=== PATIENT | female | born 1995 | race American Indian/Alaskan Native ===

== ENCOUNTER 2017-08-24 00:18 | Inpatient (IN) | payer OTHER ==
[2017-08-24] MEDS ORDERED: MINERAL OIL PO PRN (01:06)
[2017-08-24] MEDS ORDERED: ePHEDrine SULFATE IV PRN ×2 (01:06→04:42)
[2017-08-24] MEDS ORDERED: BRETHINE IVP PRN (01:06)
[2017-08-24] MEDS ORDERED: XYLOCAINE 2% INFILTRATI ONE (01:06)
[2017-08-24] MEDS ORDERED: BRETHINE SUB-Q PRN (01:06)
[2017-08-24] MEDS ORDERED: CERVIDIL VG ONE (01:06)
[2017-08-24] MEDS ORDERED: LACTATED RINGERS 1,000 ML IV SCH (02:00)
[2017-08-24] MEDS ORDERED: PITOCin/NS 20 UNIT/1000ML DRIP 20 UNITS/1,000 ML BAG IV SCH (02:00)
[2017-08-24 02:32] LABS: Hemoglobin 10.5 gm/dl (10.1-14.3); Mean Corpuscular HGB Conc 33 % (30-34); Mean Corpuscular Hemoglobin 29 pg (28-32); Mean Corpuscular Volume 89 fl (79-97); Platelet Count 175 K/mm3 (140-440); Red Blood Count 3.61 M/mm3 (3.65-5.03); Red Cell Distribution Width 15.9 % (13.2-15.2)
[2017-08-24] MEDS ORDERED: TYLENOL PO PRN (03:53)
--- NOTE | 2017-08-24 04:38 | History and Physical Report ---
History of Present Illness Date of examination: 08/24/17 Date of admission: 08/24/17 01:30 Chief complaint: Induction for preeclampsia History of present illness: 22-year-old at 38+ weeks presents for induction due to recently diagnosed preeclampsia, she is a [facility] patient. course complicated by late presentation at 29 weeks. She has had only 4 visits and her blood pressure has been elevated 2 with range 140 to 150s over 70s to 80s; 24 hr urine obtained shows result of 369. She is a headache, but denies epigastric pain or blurred vision. Blood pressure is in the 120s over 70s She does have significant lower extremity edema bilaterally She denies loss of fluid, no vaginal bleeding and contractions plus movement On exam per RN she is 1 cm long and thick. 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 denies: chlamydia, gonorrhea, hepatitis B, hepatitis C, herpes, HIV, syphilis Social history: single, full code. denies: Lives alone, smoking, alcohol abuse , prescription drug abuse, IV drug use - Obstetrical History Expected Date of Delivery: 08/30/17 Actual Gestation: 39 Week(s) 1 Day(s) : 1 Medications and Allergies Allergies Allergy/AdvReac Type Severity Reaction Status Date / Time No Known Allergies Allergy Verified 08/24/17 01:14 Active Meds: Active Medications Acetaminophen (Tylenol) 650 mg PO Q4H PRN PRN Reason: Pain, Mild (1-3) Last Admin: 08/24/17 04:10 Dose: 650 mg Ephedrine Sulfate (Ephedrine Sulfate) 10 mg IV Q2M PRN PRN Reason: Hypotension Lactated Ringer's (Lactated Ringers) 1,000 mls @ 125 mls/hr IV DIRECT KIMBERLY Oxytocin/Sodium Chloride (Pitocin/Ns 20 Unit/1000ml Drip) 20 units in 1,000 mls @ 125 mls/hr IV DIRECT KIMBERLY Mineral Oil (Mineral Oil) 30 ml PO QHS PRN PRN Reason: Constipation Terbutaline Sulfate (Brethine) 0.25 mg SUB-Q ONCE PRN PRN Reason: Hyperstimulation/Hypertonicity Terbutaline Sulfate (Brethine) 0.25 mg IVP ONCE PRN PRN Reason: Hyperstimulation/Hypertonicity Review of Systems Constitutional: no fever, no chills, no weakness, no chronic headaches Eyes: no blurred vision, no diplopia, no photophobia, no blind spots Cardiovascular: leg edema, no chest pain, no orthopnea, no edema, no syncope, no lightheadedness, no shortness of breath, no dyspnea on exertion, no high blood pressure Respiratory: no cough, no cough with sputum, no shortness of breath, no dyspnea on exertion Gastrointestinal: no abdominal pain, no nausea, no vomiting Genitourinary: no vaginal bleeding, no vaginal discharge, no leakage of fluid, no contractions - Vital Signs Vital signs: Vital Signs Temp Resp 97.1 F L 18 08/24/17 00:40 08/24/17 00:40 Temp Pulse Resp BP Pulse Ox 97.7 F 84 18 123/81 94 08/24/17 03:22 08/24/17 04:03 08/24/17 04:10 08/24/17 03:24 08/24/17 04:03 - Physical Exam Abdomen: Positive: normal appearance, soft. Negative: distention, tenderness, guarding, rigidity Genitourinary (Female): Positive: normal external genitalia Vulva: both: normal Uterus: Positive: enlarged (EFW ~ 3600). Negative: tender Adnexa: both: normal Extremities: Positive: edema. Negative: tenderness - Obstetrical FHR: category 1 Cervical Dilatation: 1 (per RN) Results Result Diagrams: 08/24/17 01:45 Abnormal lab results 08/24/17 Range/Units 01:45 RBC 3.61 L (3.65-5.03) M/mm3 RDW 15.9 H (13.2-15.2) % All other labs normal. Assessment and Plan A: 22-year-old at 39+1 weeks with preeclampsia -Cat 1 tracing P: -Admit -Routine labs and CMP -Cervidil Induction -Consider magnesium if blood pressure in severe range persistent -Anticipate - Patient Problems (1) 39 weeks gestation of Current Visit: Yes Status: Acute (2) Pre-eclampsia Current Visit: Yes Status: Acute
[2017-08-24 05:33] LABS: Albumin 3.1 g/dL (3.9-5); BUN/Creatinine Ratio 20; Blood Urea Nitrogen 8 mg/dL (7-17); Calcium 8.3 mg/dL (8.4-10.2); Hemolysis Index 99
[2017-08-24 05:38] LABS: Alanine Aminotransferase 12 units/L (7-56)
[2017-08-24] MEDS: LACTATED RINGERS 1,000 ML IV SCH ×2 (09:54→18:41)
--- NOTE | 2017-08-24 12:09 | Progress Note ---
Assessment and Plan - Patient Problems (1) 39 weeks gestation of Current Visit: Yes Status: Acute (2) Pre-eclampsia Current Visit: Yes Status: Acute Plan to address problem: SBP 120-128, DBP 70-80 Continue routine BP monitoring (3) Encounter for induction of labor Current Visit: Yes Status: Acute Plan to address problem: Cervidil inserted 08/24/17 @ 04:00 Continue routine labor orders Anticipate vaginal delivery Subjective - Subjective Date of service: 08/24/17 Principal diagnosis: IUP @ 39 weeks 1 day; IOL for pre-eclampsia Patient reports: no new complaints (patient resting in bed in left lateral position with eyes closed) Objective - Vital Signs Vital Signs: Vital Signs - 12hr 08/24/17 08/24/17 08/24/17 00:40 00:42 00:59 Temperature 97.1 F L Pulse Rate 90 82 Respiratory 18 Rate Blood Pressure 123/78 128/80 Blood Pressure [Left] O2 Sat by Pulse Oximetry 08/24/17 08/24/17 08/24/17 01:09 01:25 03:22 Temperature 97.7 F Pulse Rate 100 H 91 H Respiratory 18 Rate Blood Pressure 124/75 124/77 Blood Pressure [Left] O2 Sat by Pulse Oximetry 08/24/17 08/24/17 08/24/17 03:24 03:53 03:58 Temperature Pulse Rate 91 H 81 85 Respiratory Rate Blood Pressure 123/81 Blood Pressure [Left] O2 Sat by Pulse 100 100 Oximetry 08/24/17 08/24/17 08/24/17 04:03 04:10 04:37 Temperature Pulse Rate 84 67 Respiratory 18 Rate Blood Pressure 126/76 Blood Pressure [Left] O2 Sat by Pulse 94 Oximetry 08/24/17 08/24/17 08/24/17 05:38 06:36 08:03 Temperature 98.1 F Pulse Rate 65 75 76 Respiratory 16 Rate Blood Pressure 119/59 119/60 Blood Pressure 121/75 [Left] O2 Sat by Pulse Oximetry 08/24/17 08/24/17 08:08 09:36 Temperature Pulse Rate 76 85 Respiratory Rate Blood Pressure 121/75 120/70 Blood Pressure [Left] O2 Sat by Pulse Oximetry - Exam FHR: auscultation normal, category 1 FHR comments: baseline 150, moderate variability, 15x15 accels, no decels Uterine Contraction Monitor Mode: External Uterine Contraction Frequency (min): 2-5 Uterine Contraction Pattern: Regular - Labs Labs: Abnormal Labs 08/24/17 08/24/17 01:45 05:00 RBC 3.61 L RDW 15.9 H Carbon Dioxide 20 L Creatinine 0.4 L Calcium 8.3 L Alkaline Phosphatase 171 H Total Protein 6.0 L Albumin 3.1 L Laboratory Results - last 24 hr 08/24/17 08/24/17 08/24/17 01:45 01:45 05:00 WBC 7.6 RBC 3.61 L Hgb 10.5 Hct 32.0 MCV 89 MCH 29 MCHC 33 RDW 15.9 H Plt Count 175 Sodium 137 Potassium 4.5 Chloride 102.8 Carbon Dioxide 20 L Anion Gap 19 BUN 8 Creatinine 0.4 L Estimated GFR > 60 BUN/Creatinine Ratio 20 Glucose 67 Calcium 8.3 L Total Bilirubin 0.20 AST 24 ALT 12 Alkaline Phosphatase 171 H Total Protein 6.0 L Albumin 3.1 L Albumin/Globulin Ratio 1.1 Blood Type A POSITIVE Antibody Screen Negative
[2017-08-24] MEDS: PITOCin/NS 30 UNIT/500ML 30 UNITS/500 ML BAG IV SCH ×2 (18:42→19:44)
[2017-08-25] MEDS: LACTATED RINGERS 1,000 ML IV SCH ×2 (01:30→17:13)
--- NOTE | 2017-08-25 12:25 | Progress Note ---
Assessment and Plan - Patient Problems (1) 39 weeks gestation of Current Visit: Yes Status: Acute (2) Pre-eclampsia Current Visit: Yes Status: Acute Plan to address problem: SBP 117-136, DBP 64-80 Continue routine BP monitoring (3) Encounter for induction of labor Current Visit: Yes Status: Acute Plan to address problem: Continue routine labor orders Continue cervical ripening with Cook Balloon and restart low dose Pitocin up to 4 mU/min Anticipate vaginal delivery Subjective - Subjective Date of service: 08/25/17 Principal diagnosis: IUP @ 39 weeks 2 day; IOL for pre-eclampsia Interval history: Cervidil inserted 08/24/17 @ 04:00 and removed @ 16:00. Cervix unchanged. Patient was allowed to shower and have dinner. Due to regular contractions q 2 to 5 mins, the patient was started on low dose Pitocin up to 4mU/min to start titrating per protocol when in active labor. After 12 hrs, no cervical change noted. Pitocin discontinued and patient was allowed to shower and eat breakfast. Patient reports: movement normal, contractions, other (denies headache, vision changes, epigastric pain or N/V), no loss of fluid, no vaginal bleeding Objective - Vital Signs Vital Signs: Vital Signs - 12hr 08/25/17 08/25/17 08/25/17 04:27 08:21 08:27 Temperature 98.3 F Pulse Rate 85 74 74 Respiratory 16 Rate Blood Pressure 128/73 136/79 Blood Pressure 136/79 [Left] O2 Sat by Pulse 100 Oximetry - Exam FHR: auscultation normal, category 1 FHR comments: baseline 130, moderate variability, 15X15 accels, no decels Uterine Contraction Monitor Mode: External Cervical Dilatation: 1.5 Cervical Effacement Percentage: 50 station: -3 Uterine Contraction Pattern: Irregular Extremities: edema (3+, non-pitting) - Labs Labs: Abnormal Labs 08/24/17 08/24/17 01:45 05:00 RBC 3.61 L RDW 15.9 H Carbon Dioxide 20 L Creatinine 0.4 L Calcium 8.3 L Alkaline Phosphatase 171 H Total Protein 6.0 L Albumin 3.1 L Laboratory Results - last 24 hr 08/24/17 01:45 RPR Nonreactive
[2017-08-25] MEDS: PITOCin/NS 30 UNIT/500ML 30 UNITS/500 ML BAG IV SCH (17:15)
[2017-08-25] MEDS ORDERED: SUBLIMAZE IV PRN (19:58)
[2017-08-25] MEDS: STADOL IV PRN (20:13)
[2017-08-26] MEDS: LACTATED RINGERS 1,000 ML IV SCH (02:07)
[2017-08-26] MEDS: PITOCin/NS 30 UNIT/500ML 30 UNITS/500 ML BAG IV SCH ×2 (02:08→04:37)
[2017-08-26] MEDS: STADOL IV PRN (03:40)
--- NOTE | 2017-08-26 04:18 | Event Note ---
Date: 08/26/17 S: Patient in right lateral position. She reports mild contractions and tolerable. O: BP 120/74, HR 92 SVE 5/50/-1/vtx FHR: baseline 125, moderate variability, +accels, early and variable decels Ctxs: q1-6mins, palpate moderate Pitocin @ 10 mU/min AROM @ 03:26, clear, moderate amount A: 22yo G 1 P 0 @ 39 weeks 3 days IOL for pre-eclampsia Category II FHR Active labor AROM P: Continue routine labor orders Anticipate vaginal delivery
[2017-08-26] MEDS ORDERED: XYLOCAINE 2% INFILTRATI ONE (06:06)
--- NOTE | 2017-08-26 07:19 | Procedure Note ---
OB Delivery Note - Delivery Date of Delivery: 08/26/17 (05:55) Surgeon: CHRISTIN SIMPSON (CNM) Estimated blood loss: other (400cc) - Vaginal Delivery presentation: vertex Delivery position: OA Intrapartum events: meconium (terminal), prolonged latent phase Delivery induction: cervidil (as well as low dose pitocin, and cook balloon) Delivery augmentation: rupture of membranes, pitocin Delivery monitor: external FHT, external uterine Route of delivery: Delivery placenta: spontaneous (06:01) Delivery cord: 3 umbilical vessels Episiotomy: none Delivery laceration: 1st degree (labial), vaginal side wall Delivery repair: vicryl (2-0 and 3-0 ) Anesthesia: local Delivery comments: of a less vigorous term 7 lbs 6.5 oz female at 05:55. Baby placed on maternal abdomen, dried and bulb-suctioned. Umbilical cord double-clamped and cut. Large lochia noted. Spontaneous delivery of placenta @ 06:01; Valeri-side presenting. Fundal massage initiated. IV site infiltrated and new IV line started by RN. IV pitocin bolus initiated. Fundus F/ML/U. Placenta intact; was discarded. 1st degree vaginal and labial laceration noted; repaired using 2-0 and 3-0 vicryl needles under local anesthesia. Patient tolerated the procedure well with some discomfort. Mom and baby in stable condition. - Infant A at 1 minute: 7 at 5 minutes: 8 Infant Gender: Female (7 lbs 6.5oz (3367gm); 20 in)
[2017-08-26] MEDS ORDERED: PHENERGAN PO PRN (07:21)
[2017-08-26] MEDS ORDERED: LANSINOH TP PRN (07:21)
[2017-08-26] MEDS ORDERED: ZOFRAN IV PRN (07:21)
[2017-08-26] MEDS ORDERED: PHENERGAN PR PRN (07:21)
[2017-08-26] MEDS ORDERED: NORCO 5/325 PO PRN (07:21)
[2017-08-26] MEDS ORDERED: TUCKS PAD TP PRN (07:21)
[2017-08-26] MEDS ORDERED: BENADRYL PO PRN (07:21)
[2017-08-26] MEDS ORDERED: SODIUM CHLORIDE FLUSH SYRINGE 10 ML IV NR (08:00)
[2017-08-26] MEDS: MOTRIN PO SCH ×4 (08:00→23:43)
[2017-08-26] MEDS ORDERED: DULCOLAX PR PRN (10:00)
[2017-08-26] MEDS ORDERED: PRENATAL VITAMIN PO SCH (10:00)
[2017-08-26] MEDS ORDERED: FEOSOL PO SCH (10:00)
[2017-08-26 20:06] LABS: Hematocrit 25.2 % (30.3-42.9)
[2017-08-26] MEDS ORDERED: MILK OF MAGNESIA PO PRN (22:00)
[2017-08-27] MEDS: MOTRIN PO SCH (05:08)
--- NOTE | 2017-08-27 09:22 | Progress Note ---
Assessment and Plan - Patient Problems (1) (normal spontaneous vaginal delivery) Current Visit: Yes Status: Acute Plan to address problem: PPD 2 - stable Discharge to home F/U @ [facility] in 6 weeks for PP exam (2) Anemia in puerperium, baby delivered during current episode of care Current Visit: Yes Status: Acute Plan to address problem: Asymptomatic Continue iron therapy Subjective - Subjective Date of service: 08/27/17 Principal diagnosis: s/p Normal Spontaenous Vaginal Delivery Patient reports: appetite normal, voiding normally, pain well controlled, ambulating normally [place]: doing well, bottle feeding Objective - Vital Signs Latest vital signs: Vital Signs Temp Pulse Resp BP Pulse Ox 08/27/17 08:00 97.9 F 73 16 126/77 97 08/27/17 00:19 98.2 F 92 H 18 130/77 98 08/26/17 20:20 98.5 F 108 H 18 120/78 100 08/26/17 16:04 98.9 F 98 H 16 129/79 99 08/26/17 12:43 98.2 F 85 16 127/73 100 Intake and Output 08/26/17 08/27/17 08/27/17 23:59 07:59 15:59 Intake Total 920 720 Balance 920 720 Intake: Oral 440 720 Intake, Free Water 480 Other: Total, Intake Amount 200 480 # Voids Void 1 2 # Bowel Movements 0 - Exam Cardiovascular: Present: Regular rate, Normal S1, Normal S2, No murmurs Lungs: Present: Clear to auscultation, Normal air movement Abdomen: Present: normal appearance, soft Vulva: both: laceration/episiotomy (healing well) Uterus: Present: normal, firm, fundal height below umbilicus Extremities: Present: edema (3+) Deep Tendon Reflex Grade: Normal +2 - Labs Labs: Abnormal lab results 08/26/17 Range/Units 19:27 Hgb 8.0 L (10.1-14.3) gm/dl Hct 25.2 L D (30.3-42.9) %
--- NOTE | 2017-08-27 09:27 | Discharge Summary ---
Providers - Providers Date of Admission: 08/24/17 01:30 Date of discharge: 08/27/17 Attending physician: ALAN WINCHESTER MD Primary care physician: ALAN WINCHESTER MD Hospitalization Reason for admission: induction of labor, IUP at term, other (pre-eclampsia) Delivery: Episiotomy: none Laceration: vaginal side wall, 1st degree (labial/vaginal) Other procedures: none complications: none Discharge diagnosis: IUP at term delivered baby: female Hospital course: Uncomplicated Condition at discharge: Stable Disposition: DC-01 TO HOME OR SELFCARE - Discharge Diagnoses (1) (normal spontaneous vaginal delivery) Status: Acute (2) Anemia in puerperium, baby delivered during current episode of care Status: Acute Comment: asymptomatic Plan - Discharge Medications Prescriptions: Ferrous Sulfate [Feosol 325 MG tab] 325 mg PO BID #60 tablet - Provider Discharge Summary Activity: routine, no sex for 6 weeks, no heavy lifting 4 weeks, no strenuous exercise Diet: routine Instructions: routine Additional instructions: [] Smoking cessation referral if applicable(refer to patient education folder for contact #) [] Refer to [facility] Booklet Call your doctor immediately for: * Fever > 100.5 * Heavy vaginal bleeding ( >1 pad per hour) * Severe persistent headache * Shortness of breath * Reddened, hot, painful area to leg or breast * Drainage or odor from incision. * Keep incision clean and dry at all times and follow doctor's instructions regarding bathing/showering - Follow up plan Follow up: ALAN WINCHESTER MD [Primary Care Provider] - 6 Weeks (Call [facility] to schedule checkup and PP exam in 6 weeks)
[2017-08-27 12:27] VITALS: BP 125/77
== END 2017-08-27 13:30 | disposition home or self-care (01) | DRG 774 ==
LOC: TRG 00:18 → LD 01:30 → OB 08-26 09:47
PROVIDERS: ADMIT Obstetrics & Gynecology; ATTEND Obstetrics & Gynecology
PROC: 10E0XZZ Delivery of Products of Conception, External Approach (ICD-10-PCS; principal; 2017-08-26)
PROC: 0HQ9XZZ Repair Perineum Skin, External Approach (ICD-10-PCS; 2017-08-26)
PROC: 3E033VJ Introduction of Other Hormone into Peripheral Vein, Percutaneous Approach (ICD-10-PCS; 2017-08-26)
DX: O14.93 Unspecified pre-eclampsia, third trimester (principal); Z3A.39 39 weeks gestation of pregnancy; Z37.0 Single live birth; O70.0 First degree perineal laceration during delivery; O77.0 Labor and delivery complicated by meconium in amniotic fluid; O62.4 Hypertonic, incoordinate, and prolonged uterine contractions; O90.81 Anemia of the puerperium; D64.9 Anemia, unspecified
CPT/HCPCS: 36415; 59200; 80053; 85014; 85018; 85027; 86592; 86850; 86900; 86901; J0595; J2590; J7120

== ENCOUNTER 2019-01-24 17:47 | Inpatient (IN) | payer OTHER ==
[2019-01-24] MEDS ORDERED: PITOCin/NS 20 UNIT/1000ML DRIP 20,000 MILLIUNITS/1,000 ML BAG IV ONE (18:08)
[2019-01-24] MEDS ORDERED: BRETHINE SUB-Q PRN (18:20)
[2019-01-24] MEDS ORDERED: XYLOCAINE 2% INFILTRATI ONE (18:20)
[2019-01-24] MEDS ORDERED: PHENERGAN PR PRN (18:25)
[2019-01-24] MEDS ORDERED: TUCKS PAD TP PRN (18:25)
[2019-01-24] MEDS ORDERED: ZOFRAN IV PRN (18:25)
[2019-01-24] MEDS ORDERED: PHENERGAN PO PRN (18:25)
[2019-01-24] MEDS ORDERED: TYLENOL PO PRN (18:25)
[2019-01-24] MEDS ORDERED: DULCOLAX PR PRN (18:25)
[2019-01-24] MEDS ORDERED: BENADRYL PO PRN (18:25)
[2019-01-24] MEDS ORDERED: MILK OF MAGNESIA PO PRN (18:25)
[2019-01-24] MEDS ORDERED: LANSINOH TP PRN (18:25)
--- NOTE | 2019-01-24 18:37 | History and Physical Report ---
History of Present Illness Date of examination: 01/24/19 Date of admission: 01/24/19 17:47 Chief complaint: Delivered in the car. History of present illness: 23 year old female presents to L&D with complaint of having her baby in the car while trying to come to the hospital. She states the placenta has not yet delivered. Patient states she had one visit at [facility] during this . I was able to access notes and labs on computer. LMP 04/30/18. EDC 02/04/19. significant for the following: late care (initiated care on 01/12/19 and only had that one visit at 36 5/7 weeks gestation); anemia, vitamin D deficiency, UTI (untreated as patient never returned), chlamydia (untreated as patient never returned), trichomonas (untreated as patient never returned), elevated 1 hour sugar test (no 3 hour sugar test was done as patient never returned for this). labs are as follows: A+, antibody screen negative, rubella immune, hepatitis B surface antigen negative, RPR nonreactive, HIV negative, hemoglobin electrophoresis negative, 1 hour sugar test 146, hemoglobin A1C 5.6, chlamydia positive, gonorrhea negative, trichomonas positive, urine culture showed E Coli, GBS negative. Past History Past Medical History: no pertinent history Past Surgical History: no surgical history [facility] History: chlamydia, trichomonas. denies: gonorrhea, hepatitis B, hepatitis C, herpes, HIV, syphilis Family/Genetic History: none Social history: lives with family, full code. denies: smoking, alcohol abuse, prescription drug abuse, IV drug use - Obstetrical History Expected Date of Delivery: 02/04/19 Actual Gestation: 38 Week(s) 3 Day(s) : 2 Para: 2 Hx # Term Pregnancies: 2 Number of Pregnancies: 0 Spontaneous Abortions: 0 Induced : 0 Number of Living Children: 2 Medications and Allergies Allergies Allergy/AdvReac Type Severity Reaction Status Date / Time No Known Allergies Allergy Verified 08/24/17 01:14 Home Medications Medication Instructions Recorded Confirmed Last Taken Type Ferrous Sulfate [Iron] 325 mg PO BID 08/24/17 08/24/17 Unknown History Vit-Fe Fumar-FA [ 1 tab PO QDAY 08/24/17 08/24/17 Unknown History Vitamin] Ferrous Sulfate [Feosol 325 MG tab] 325 mg PO BID #60 tablet 08/27/17 Unknown Rx Active Meds: Active Medications Acetaminophen (Tylenol) 650 mg PO Q4H PRN PRN Reason: Pain MILD(1-3)/Fever >100.5/MARIANO Azithromycin (Zithromax) 1,000 mg PO ONCE ONE Stop: 01/25/19 20:01 Oxytocin/Sodium Chloride (Pitocin/Ns 20 Unit/1000ml Drip) 20 units in 1,000 mls @ 125 mls/hr IV DIRECT KIMBERLY Last Admin: 01/24/19 18:29 Dose: 125 mls/hr Documented by: Lactated Ringer's (Lactated Ringers) 1,000 mls @ 125 mls/hr IV DIRECT KIMBERLY Ampicillin Sodium (Ampicillin/Ns 2 Gm/100 Ml) 2 gm in 100 mls @ 100 mls/hr IV Q6HR KIMBERLY; Protocol Ibuprofen (Ibuprofen) 600 mg PO Q6H KIMBERLY Magnesium Hydroxide (Milk Of Magnesia) 30 ml PO HS PRN PRN Reason: Constipation Metronidazole (Flagyl) 2,000 mg PO ONCE ONE; Protocol Stop: 01/24/19 19:01 Multi-Ingredient Ointment (Lansinoh) 1 applic TP PRN PRN PRN Reason: Sore Nipples Sodium Chloride (Sodium Chloride Flush Syringe 10 Ml) 10 ml IV PRN NR Terbutaline Sulfate (Brethine) 0.25 mg SUB-Q ONCE PRN PRN Reason: Hyperstimulation/Hypertonicity Witch Sarah/Glycerin (Tucks Pad) 1 each TP PRN PRN PRN Reason: Hemorrhoid/cleansing/soothing Review of Systems All systems: negative (had her baby in the car en route to the hospital) - Vital Signs Vital signs: Vital Signs Temp 97.3 F L 01/24/19 17:54 Temp Pulse Resp BP Pulse Ox 97.3 F L 96 H 121/69 01/24/19 17:54 01/24/19 18:21 01/24/19 18:21 - Physical Exam Cardiovascular: Regular rate, Normal S1, Normal S2 Lungs: Positive: Clear to auscultation Abdomen: Positive: normal appearance, soft. Negative: distention, tenderness, guarding, rigidity Genitourinary (Female): Positive: normal external genitalia Vagina: Positive: other (small amount of lochia rubra; placenta noted to be in vagina on vaginal exam) Uterus: Positive: enlarged, tender Anus/Rectum: Positive: normal perianal skin Extremities: Positive: normal, edema. Negative: tenderness - Obstetrical Uterine Contraction Intensity: Mild Results All other labs normal. Assessment and Plan A: Delivered at 38 weeks, 3 days gestation. Precipitous delivery in the car on her way to the hospital. GBS negative. Chlamydia positive. Trichomonas positive. E. Coli UTI per records. Late and insufficient care. Elevated 1 hour sugar test with no 3 hour OGTT and normal hemoglobin A1C. Anemia. Meconium noted on placenta and membranes and large blood clot on placenta. P: Admit. Treatment of UTI, trichomonas, and chlamydia. Iron supplementation.
[2019-01-24] MEDS ORDERED: FLAGYL PO ONE (19:00)
[2019-01-24] MEDS ORDERED: PITOCin/NS 20 UNIT/1000ML DRIP 20 UNITS/1,000 ML BAG IV SCH (19:00)
[2019-01-24] MEDS ORDERED: SODIUM CHLORIDE FLUSH SYRINGE 10 ML IV NR (19:00)
--- NOTE | 2019-01-24 19:06 | Procedure Note ---
OB Delivery Note - Delivery Date of Delivery: 01/24/19 Surgeon: ARGELIA CHAUDHRY Estimated blood loss: 100cc - Vaginal Delivery presentation: vertex Intrapartum events: meconium, other(please specify) (precipitous delivery of baby in the car prior to patient arriving at hospital; placenta delivered in hospital) Delivery induction: none Delivery monitor: none Route of delivery: Delivery placenta: spontaneous Delivery cord: 3 umbilical vessels Episiotomy: none Delivery laceration: none Anesthesia: none Delivery comments: Spontaneous precipitous delivery in the car of liveborn female infant at 16:59 per paramedics. Apgars 7/9 per paramedics. Patient arrives in L&D with placenta undelivered. Spontaneous delivery of intact placenta and membranes at 17:49 by [place] mechanism. Large blood clot noted on placenta. Meconium noted on membranes. Slight smell of placenta noted. Placenta sent to path. IV Pitocin given after delivery of placenta. EBL 100 cc. Vaginal sweep negative. Fundus firm and midline. No lacerations noted. NICU called to assess infant, and NICU was informed of precipitous in car delivery, meconium noted on membranes, blood clot noted on placenta, odor, + chlamydia and + trichomonas on labs as well at UTI (E. Coli). Also informed NICU that patient had late and insufficient care and did not pass her 1 hour sugar test. Baby was taken to NICU for observation.
[2019-01-24] MEDS: AMPICILLIN/NS 2 GM/100 ML 2 GM/100 ML BAG IV SCH (20:37)
[2019-01-24] MEDS: IBUPROFEN PO SCH (20:39)
[2019-01-24] MEDS: FEOSOL PO SCH (21:40)
[2019-01-24 22:01] LABS: Hematocrit 25.4 % (30.3-42.9); Hemoglobin 8.3 gm/dl (10.1-14.3); Mean Corpuscular HGB Conc 33 % (30-34); Mean Corpuscular Volume 80 fl (79-97); Platelet Count 257 K/mm3 (140-440); Red Blood Count 3.17 M/mm3 (3.65-5.03); Red Cell Distribution Width 16.7 % (13.2-15.2)
[2019-01-24 22:15] LABS: Alanine Aminotransferase 10 units/L (7-56); Albumin 2.1 g/dL (3.9-5); BUN/Creatinine Ratio 14; Blood Urea Nitrogen 11 mg/dL (7-17); Hemolysis Index 0; Uric Acid 6.6 mg/dL (3.5-7.6)
[2019-01-25] MEDS: AMPICILLIN/NS 2 GM/100 ML 2 GM/100 ML BAG IV SCH ×2 (01:18→11:04)
[2019-01-25] MEDS: IBUPROFEN PO SCH ×2 (03:42→20:36)
[2019-01-25] MEDS: LACTATED RINGERS 1,000 ML IV SCH ×2 (06:45→14:32)
[2019-01-25 07:10] LABS: Hematocrit 29.7 % (30.3-42.9); Hemoglobin 9.5 gm/dl (10.1-14.3)
[2019-01-25] MEDS ORDERED: GENTAMICIN 100 MG in NACL 0.9% 100 ML IV SCH (09:44)
--- NOTE | 2019-01-25 09:48 | Event Note ---
Date: 01/25/19 Per RN, patient did not receive antibiotics as ordered overnight. Labs resulted in the middle of the night and I was not called by patient's nurse or lab with the abnormal results. Saw patient this morning and she has abnormal WBC (elevated) and abnormal potassium. Other labs have not been done as ordered last evening, including urinalysis and urine drug screen. Nurse states she was unable to get an accurate temperature reading on patient this morning but she states vital signs have been normal overnight and patient has been afebrile. Patient reports mild dizziness but denies cough, shortness of breath, chest pain, or abdominal pain. She denies heavy vaginal bleeding. Morning nurse states that patient did cough overnight and had yellow sputum. Stat blood cultures and urine culture ordered; CXR ordered. Added Gentamicin and Potassium to medication orders. Informed nurse of all of the above. Called Dr. Galicia to come evaluate patient due to abnormal labs and inability to get an accurate temperature reading this morning as well as dizziness reported by the patient. Dr. Galicia came and evaluated patient also. See orders.
--- NOTE | 2019-01-25 10:15 | Progress Note ---
Subjective - Subjective Date of service: 01/25/19 Interval history: Per RN, patient did not receive antibiotics as ordered overnight. Labs resulted in the middle of the night and I was not called by patient's nurse or lab with the abnormal results. Saw patient this morning and she has abnormal WBC (elevated) and abnormal potassium. Other labs have not been done as ordered last evening, including urinalysis and urine drug screen. Nurse states she was unable to get an accurate temperature reading on patient this morning but she states vital signs have been normal overnight and patient has been afebrile. Patient reports mild dizziness but denies cough, shortness of breath, chest pain, or a bdominal pain. She denies heavy vaginal bleeding. Morning nurse states that patient did cough overnight and had yellow sputum. Stat blood cultures and urine culture ordered; CXR ordered. Added Gentamicin and Potassium to medication orders. Informed nurse of all of the above. Called Dr. Galicia to come evaluate patient due to abnormal labs and inability to get an accurate temperature reading this morning as well as dizziness reported by the patient. Dr. Galicia came and evaluated patient also. See orders. Objective - Vital Signs Latest vital signs: Vital Signs Temp Pulse Resp BP BP 01/25/19 08:00 60 18 106/73 01/25/19 04:00 98.8 F 71 16 112/62 01/25/19 00:00 98.7 F 77 18 111/78 01/24/19 21:39 18 01/24/19 20:39 18 01/24/19 19:21 99 H 115/65 01/24/19 19:06 96 H 125/72 01/24/19 18:51 96 H 119/70 01/24/19 18:36 96 H 120/67 01/24/19 18:21 96 H 121/69 01/24/19 18:06 96 H 119/69 01/24/19 17:54 97.3 F L Intake and Output 01/24/19 01/25/19 01/25/19 23:59 07:59 15:59 Intake Total 340 480 Output Total 600 Balance -260 480 Intake: IV 100 AMPICILLIN/NS 2 GM/100 ML 100 2 gm In 100 ml @ 100 mls /hr IV Q6H [facility] Rx#: [id number] Oral 240 480 Output: Urine 600 Void 600 Other: Total, Intake Amount 240 480 Total, Output Amount 600 Weight 88.451 kg - Labs Labs: Abnormal lab results 01/24/19 01/24/19 01/24/19 Range/Units 03:09 21:42 21:42 WBC 32.3 H (4.5-11.0) K/mm3 RBC 3.17 L (3.65-5.03) M/mm3 Hgb 8.3 L (10.1-14.3) gm/dl Hct 25.4 L (30.3-42.9) % MCH 26 L (28-32) pg RDW 16.7 H (13.2-15.2) % Fibrinogen 706 H (211-480) mg/dl Sodium 131 L (137-145) mmol/L Potassium 3.0 L (3.6-5.0) mmol/L Carbon Dioxide 20 L (22-30) mmol/L Glucose 158 H (65-100) mg/dL Calcium 8.0 L (8.4-10.2) mg/dL Alkaline Phosphatase 133 H (35-129) units/L Lactate Dehydrogenase 195 H (91-180) units/L Total Protein 6.2 L (6.3-8.2) g/dL Albumin 2.1 L (3.9-5) g/dL 01/25/19 Range/Units 06:46 WBC (4.5-11.0) K/mm3 RBC (3.65-5.03) M/mm3 Hgb 9.5 L (10.1-14.3) gm/dl Hct 29.7 L (30.3-42.9) % MCH (28-32) pg RDW (13.2-15.2) % Fibrinogen (211-480) mg/dl Sodium (137-145) mmol/L Potassium (3.6-5.0) mmol/L Carbon Dioxide (22-30) mmol/L Glucose (65-100) mg/dL Calcium (8.4-10.2) mg/dL Alkaline Phosphatase (35-129) units/L Lactate Dehydrogenase (91-180) units/L Total Protein (6.3-8.2) g/dL Albumin (3.9-5) g/dL
[2019-01-25] MEDS ORDERED: KCL 10MEQ/100ML 10 MEQ/100 ML BAG IV ONE (11:00)
--- NOTE | 2019-01-25 11:25 | Event Note ---
Date: 01/25/19 Zithromax re-ordered as computer glitch when ordering for stat/now has been detected (puts it in for next day when ordering it stat). EKG and CXR have been ordered. Awaiting UDS results; contacted lab about this. Lab states specimen has to be re-done. Cath urine done and sent to lab stat. Called Dr. Galicia re: patient and OK'd a hospitalist consult with Dr. Galicia. Hospitalist consult ordered stat. Called hospitalist and left message on voicemail that consult is being ordered.
[2019-01-25] MEDS: GENTAMICIN/NS 100 MG/100 ML 100 MG/100 ML BAG IV SCH ×2 (11:48→21:54)
[2019-01-25 11:56] LABS: Bacteria,Urine 1+ /HPF (Negative); Bilirubin,Urine NEG (Negative); Blood,Urine SM (Negative); Color,Urine Amber (Yellow); Urobilinogen,Urine < 2.0 mg/dL (<2.0)
[2019-01-25 11:59] LABS: Amphetamine Screen,Urine PRESUMPTIVE NEGATIVE; Benzodiazepines Screen,Urine PRESUMPTIVE NEGATIVE; Cannabinoid Screen,Urine PRESUMPTIVE NEGATIVE; Cocaine Screen,Urine PRESUMPTIVE NEGATIVE; Methadone Screen,Urine PRESUMPTIVE NEGATIVE; Opiate Screen,Urine PRESUMPTIVE NEGATIVE
[2019-01-25 12:00] LABS: WBC,Urine > 182.0 /HPF (0.0-6.0)
--- NOTE | 2019-01-25 12:16 | XRay Report ---
CHEST 1 VIEW 01/25/2019 11:50 AM INDICATION / CLINICAL INFORMATION: cough. COMPARISON: None available. FINDINGS: SUPPORT DEVICES: None. HEART / MEDIASTINUM: No significant abnormality. LUNGS / PLEURA: No significant pulmonary or pleural abnormality. No pneumothorax. ADDITIONAL FINDINGS: No significant additional findings. IMPRESSION: 1. No acute findings. Signer Name: Kolton Gonzalez MD Signed: 01/25/2019 12:11 PM Workstation Name: [id number]
[2019-01-25] MEDS ORDERED: ZITHROMAX PO ONE ×2 (12:26→20:00)
--- NOTE | 2019-01-25 13:11 | Event Note ---
Date: 01/25/19 Cath urinalysis shows greater than 182 WBC/hpf. Negative nitrites. Urine culture pending. Discontinued Ampicillin and started Rocephin 1 gram IV every 12 hours. Continued Gentamicin 100 mg IV every 8 hours. CXR shows "no acute findings." EKG normal sinus rhythm "ST elevation probable early repolarization." Patient states she is less sleepy and less dizzy than she was when seen earlier this morning. Patient denies headache, visual disturbance, chest pain, shortness of breath, leg pain, abdominal pain, back pain or flank pain. Patient denies h eavy vaginal bleeding or large clots. Patient states she takes no home medications, including OTC medications. She denies any use of tobacco, drugs, or alcohol. She denies any history of health problems. She states her antibiotic for UTI diagnosed at the clinic was at her pharmacy but she never picked it up or took it. Trichomonas has been treated with Flagyl and chlamydia has been treated with Zithromax. Patient is alert and oriented, NAD, talks clearly and answers questions appropriately. Skin warm and dry. Respirations even and unlabored. Temp. 92.1 orally. O2 sat 100 % on room air. Pulse 72 bpm. Respirations 20. BP 93/52. BP rechecked manually 92/60. Lungs clear to ausculation in all lung deleon; no wheezing heard, no cough heard. Heart RRR without murmur. Abdomen soft, nontender, + BS, no fundal tenderness. Mild right CVAT. No leg pain bilaterally. Small amount of lochia, no foul odor noted. Probable pyelonephritis. Probable sepsis. Vital sign abnormalities (low temp and low BP). Plan is IV fluid hydration, IV antibiotics (Rocephin and Gentamicin), vital sign monitoring, hospitalist to see patient. Blood cultures, urine culture and flu swab pending. Called Dr. Galicia re: this patient and informed him of urinalysis results, CXR and EKG findings, low temp and low blood pressure as well as lab results and interventions taken. No new orders received from Dr. Galicia. Dr. Galicia states OK for patient to stay on Mother/Baby unit.
[2019-01-25] MEDS ORDERED: LACTATED RINGERS 1,000 ML IV ONE (14:00)
[2019-01-25] MEDS ORDERED: NACL 0.9% 1000 ML 1,000 ML ONE (15:12)
[2019-01-25 15:14] LABS: Hematocrit 34.8 % (30.3-42.9); Hemoglobin 10.9 gm/dl (10.1-14.3); Mean Corpuscular HGB Conc 31 % (30-34); Mean Corpuscular Volume 82 fl (79-97); Platelet Count 311 K/mm3 (140-440); Red Blood Count 4.26 M/mm3 (3.65-5.03); Red Cell Distribution Width 17.3 % (13.2-15.2)
[2019-01-25] MEDS ORDERED: VITAMIN B-1 100 MG, FOLVITE 1 MG, INFUVITE 10 ML in NACL 0.9% 1000 ML 1,000 ML IV ONE (16:16)
--- NOTE | 2019-01-25 18:06 | Cat Scan Report ---
CT abdomen pelvis w con INDICATION / CLINICAL INFORMATION: chills, hypothermia. TECHNIQUE: All CT scans at this location are performed using CT dose reduction for ALARA by means of automated e xposure control. COMPARISON: None available. FINDINGS: No free fluid is seen in the abdomen. Mild bilateral hydronephrosis is present most likely secondary to . The uterus is markedly enlarged consistent with a uterus. The liver, spleen, pancreas, adrenal glands and great vessels are normal. In the pelvis, no significant free fluid is seen. Multiple collateral veins are seen adjacent to the uterus. No enlarged lymph nodes are identified. The bladder is moderately distended. The appendix is normal. IMPRESSION: 1. uterus with multiple collateral veins adjacent to the uterus particular on the right si de 2. Moderate bladder distention with mild bilateral hydronephrosis most likely secondary to Signer Name: Jose PENN Signed: 01/25/2019 6:02 PM Workstation Name: [id number]
[2019-01-25 18:10] LABS: Band Neutrophils # (Manual) 4.1 K/mm3; Basophils % (Manual) 0 % (0.0-1.8); Monocytes % (Manual) 4.5 % (0.0-7.3); Myelocytes # (Manual) 0.3 K/mm3; Total Cells Counted 200
[2019-01-25 18:11] LABS: Anisocytosis 1+; Burr Cells Few; Hypochromasia Few; Large Platelets Few; Ovalocytes Few; Platelet Estimate Consistent w Auto
[2019-01-25] MEDS ORDERED: NACL 0.9% 1000 ML 1,000 ML IV ONE (19:37)
--- NOTE | 2019-01-25 19:47 | Consultation ---
History of Present Illness - Reason for Consult Consult date: 01/25/19 Requesting physician: YEFRI GALICIA - History of Present Illness 23 YO Female with Obesity S/P on 01/24. Consult placed for suspected Sepsis/Pyelonephritis. Pt seen and evaluated upon arrival to [facility]. Pt resting comfortably, and mildly confused, agitated, and tachycardic with heart rate around 120 and systolic blood pressure in the 90's. Pt is also hypothermic. Pt care plan discussed with Dr. Galicia. At time of my initial consultation the following investigational studies have been ordered without results/or f/u: CBC, CMP, Chest X ray, blood cultures, Urine Drug screen, thyroid panel, HIV1&2. Pt currently on therapeutic antibiotics at time of my evaluation. No additional nursing reports. Past History Past Medical History: other (Obesity) Past Surgical History: No surgical history, Other (reviewed) Social history: single, lives with family, full code. denies: smoking, alcohol abuse, prescription drug abuse, IV drug use Family history: no significant family history (reviewed) Medications and Allergies Allergies Allergy/AdvReac Type Severity Reaction Status Date / Time No Known Allergies Allergy Verified 08/24/17 01:14 Home Medications Medication Instructions Recorded Confirmed Last Taken Type Ferrous Sulfate [Iron] 325 mg PO BID 08/24/17 01/24/19 Unknown History Vit-Fe Fumar-FA [ 1 tab PO QDAY 08/24/17 01/24/19 Unknown History Vitamin] Ferrous Sulfate [Feosol 325 MG tab] 325 mg PO BID #60 tablet 08/27/17 01/24/19 Unknown Rx Active Meds: Active Medications Acetaminophen (Tylenol) 650 mg PO Q4H PRN PRN Reason: Pain MILD(1-3)/Fever >100.5/MARIANO Ferrous Sulfate (Feosol) 325 mg PO BID [facility] Last Admin: 01/24/19 21:40 Dose: 325 mg Documented by: Oxytocin/Sodium Chloride (Pitocin/Ns 20 Unit/1000ml Drip) 20 units in 1,000 mls @ 125 mls/hr IV DIRECT [facility] Last Admin: 01/24/19 18:29 Dose: 125 mls/hr Documented by: Lactated Ringer's (Lactated Ringers) 1,000 mls @ 125 mls/hr IV DIRECT [facility] Last Admin: 01/25/19 14:32 Dose: 125 mls/hr Documented by: Gentamicin Sulfate/Sodium Chloride (Gentamicin/Ns 100 Mg/100 Ml) 100 mg in 100 mls @ 200 mls/hr IV Q8H [facility] Last Admin: 01/25/19 11:48 Dose: 200 mls/hr Documented by: Ceftriaxone Sodium (Rocephin/Ns 1 Gm/50 Ml) 1 gm in 50 mls @ 100 mls/hr IV Q12H [facility]; Protocol Thiamine HCl 100 mg/ Folic Acid 1 mg/ Multivitamins/Minerals 10 ml/ Sodium Chloride 1,011.2 mls @ 250 mls/hr IV ONCE ONE Stop: 01/25/19 20:18 Last Admin: 01/25/19 16:48 Dose: 250 mls/hr Documented by: Sodium Chloride (Nacl 0.9% 1000 Ml) 1,000 mls @ 999 mls/hr IV BOLUS ONE Stop: 01/25/19 20:37 Last Admin: 01/25/19 15:15 Dose: 999 mls/hr Documented by: Ibuprofen (Ibuprofen) 600 mg PO Q6H [facility] Last Admin: 01/25/19 03:42 Dose: Not Given Documented by: Magnesium Hydroxide (Milk Of Magnesia) 30 ml PO HS PRN PRN Reason: Constipation Multi-Ingredient Ointment (Lansinoh) 1 applic TP PRN PRN PRN Reason: Sore Nipples Terbutaline Sulfate (Brethine) 0.25 mg SUB-Q ONCE PRN PRN Reason: Hyperstimulation/Hypertonicity Witch Sarah/Glycerin (Tucks Pad) 1 each TP PRN PRN PRN Reason: Hemorrhoid/cleansing/soothing Review of Systems Constitutional: chills, no weight loss, no weight gain, no fever Ears, nose, mouth and throat: no ear pain, no ear discharge, no tinnitis, no nasal congestion Cardiovascular: no chest pain, no orthopnea, no palpitations, no rapid/irregular heart beat, no edema, no syncope, no lightheadedness Respiratory: no cough, no cough with sputum, no excessive sputum, no hemoptysis, no shortness of breath, no dyspnea on exertion Gastrointestinal: no abdominal pain, no nausea, no vomiting, no diarrhea, no constipation, no change in bowel habits, no BRBPR, no melena, no early satiety, no indigestion Genitourinary Female: no pelvic pain, no flank pain, no dysuria, no urinary f requency Rectal: no pain, no incontinence, no bleeding, no itching, no discharge Musculoskeletal: no neck stiffness, no neck pain, no shooting arm pain, no arm numbness/tingling, no shooting leg pain, no redness of joints Integumentary: no rash, no pruritis, no redness, no sores, no wounds, no jaundice Neurological: no transient paralysis, no paralysis, no weakness, no parathesias, no numbness, no tingling, no syncope Psychiatric: no anxiety, no memory loss, no change in sleep habits, no sleep disturbances, no insomnia, no change in appetite, no change in libido Endocrine: no cold intolerance, no heat intolerance, no polyphagia, no excessive thirst, no polydipsia, no polyuria, no nocturia, no excessive sweating Hematologic/Lymphatic: no easy bruising, no easy bleeding, no lymphadenopathy, no lymphedema Allergic/Immunologic: no urticaria, no allergic rhinitis, no wheezing, no persistent infections, no anaphylaxis Exam - Constitutional Vitals: Temp Pulse Resp BP Pulse Ox 97.1 F L 162 H 36 H 125/50 100 01/25/19 15:58 01/25/19 15:58 01/25/19 15:58 01/25/19 15:58 01/25/19 15:58 General appearance: Present: mild distress, obese - EENT Eyes: Present: PERRL ENT: hearing intact, clear oral mucosa - Neck Neck: Present: supple, normal ROM - Respiratory Respiratory effort: normal Respiratory: bilateral: CTA - Cardiovascular Heart Sounds: Present: S1 & S2. Absent: rub, click - Extremities Extremities: pulses symmetrical, No edema Peripheral Pulses: within normal limits - Abdominal General gastrointestinal: Present: soft, non-tender, non-distended, normal bowel sounds Female genitourinary: Present: normal - Integumentary Integumentary: Present: clear, warm, dry - Musculoskeletal Musculoskeletal: generalized weakness - Psychiatric Psychiatric: appropriate mood/affect, intact judgment & insight, no memory intact, agitated - Neurologic Neurologic: CNII-XII intact, moves all extremities, no gait normal Results - Labs CBC & Chem 7: 01/25/19 14:49 01/24/19 21:42 Labs: Abnormal lab results 01/24/19 01/24/19 01/24/19 Range/Units 03:09 21:42 21:42 WBC 32.3 H (4.5-11.0) K/mm3 RBC 3.17 L (3.65-5.03) M/mm3 Hgb 8.3 L (10.1-14.3) gm/dl Hct 25.4 L (30.3-42.9) % MCH 26 L (28-32) pg RDW 16.7 H (13.2-15.2) % Seg Neuts % (Manual) (40.0-70.0) % Lymphocytes % (Manual) (13.4-35.0) % Seg Neutrophils # Man (1.8-7.7) K/mm3 Monocytes # (Manual) (0.0-0.8) K/mm3 Fibrinogen 706 H (211-480) mg/dl Sodium 131 L (137-145) mmol/L Potassium 3.0 L (3.6-5.0) mmol/L Carbon Dioxide 20 L (22-30) mmol/L Glucose 158 H (65-100) mg/dL Calcium 8.0 L (8.4-10.2) mg/dL Alkaline Phosphatase 133 H (35-129) units/L Lactate Dehydrogenase 195 H (91-180) units/L Total Protein 6.2 L (6.3-8.2) g/dL Albumin 2.1 L (3.9-5) g/dL TSH (0.270-4.200) mlU/mL Urine WBC (Auto) (0.0-6.0) /HPF 01/25/19 01/25/19 01/25/19 Range/Units 06:46 11:42 14:49 WBC (4.5-11.0) K/mm3 RBC (3.65-5.03) M/mm3 Hgb 9.5 L (10.1-14.3) gm/dl Hct 29.7 L (30.3-42.9) % MCH (28-32) pg RDW (13.2-15.2) % Seg Neuts % (Manual) (40.0-70.0) % Lymphocytes % (Manual) (13.4-35.0) % Seg Neutrophils # Man (1.8-7.7) K/mm3 Monocytes # (Manual) (0.0-0.8) K/mm3 Fibrinogen (211-480) mg/dl Sodium (137-145) mmol/L Potassium (3.6-5.0) mmol/L Carbon Dioxide (22-30) mmol/L Glucose (65-100) mg/dL Calcium (8.4-10.2) mg/dL Alkaline Phosphatase (35-129) units/L Lactate Dehydrogenase (91-180) units/L Total Protein (6.3-8.2) g/dL Albumin (3.9-5) g/dL TSH 4.320 H (0.270-4.200) mlU/mL Urine WBC (Auto) > 182.0 H (0.0-6.0) /HPF 01/25/19 Range/Units 14:49 WBC 34.3 H (4.5-11.0) K/mm3 RBC (3.65-5.03) M/mm3 Hgb (10.1-14.3) gm/dl Hct (30.3-42.9) % MCH 26 L (28-32) pg RDW 17.3 H (13.2-15.2) % Seg Neuts % (Manual) 73.5 H (40.0-70.0) % Lymphocytes % (Manual) 6.5 L (13.4-35.0) % Seg Neutrophils # Man 25.2 H (1.8-7.7) K/mm3 Monocytes # (Manual) 1.5 H (0.0-0.8) K/mm3 Fibrinogen (211-480) mg/dl Sodium (137-145) mmol/L Potassium (3.6-5.0) mmol/L Carbon Dioxide (22-30) mmol/L Glucose (65-100) mg/dL Calcium (8.4-10.2) mg/dL Alkaline Phosphatase (35-129) units/L Lactate Dehydrogenase (91-180) units/L Total Protein (6.3-8.2) g/dL Albumin (3.9-5) g/dL TSH (0.270-4.200) mlU/mL Urine WBC (Auto) (0.0-6.0) /HPF Assessment and Plan - Patient Problems (1) Sepsis Current Visit: Yes Status: Suspected Plan to address problem: Recommend: Continue IV antibiotic therpay, IVF resuscitation therapy, monitor uop q shift, Chest x ray, CT Abdomen pelvis, supportive care, F/U: CBC, CMP, Blood cultures, CT Abdomen/Pelvis, (2) Agitation Current Visit: Yes Status: Acute Plan to address problem: Suspect possible withdrawl syndrome: UDS, Banana bag, supportive care, hold benzodiazepines at this time,. (3) Hypokalemia Current Visit: Yes Status: Acute Plan to address problem: dietary repletion, repeat bmp in am, (4) Hypothermia Current Visit: Yes Status: Acute Qualifiers: Encounter type: initial encounter Qualified Code(s): T68.XXXA - Hypothermia, initial encounter Plan to address problem: Warming blankets, serial body core temperature check q shift, thyroid panel, supportive care.
[2019-01-25] MEDS ORDERED: NACL 0.9% 1000 ML IV ONE (20:06)
[2019-01-25] MEDS: FEOSOL PO SCH (21:38)
[2019-01-26] MEDS: ROCEPHIN/NS 1 GM/50 ML 1 GM/50 ML BAG IV SCH ×3 (04:46→16:14)
[2019-01-26] MEDS: IBUPROFEN PO SCH ×4 (04:48→20:29)
[2019-01-26] MEDS: LACTATED RINGERS 1,000 ML IV SCH ×3 (04:58→23:23)
[2019-01-26] MEDS: GENTAMICIN/NS 100 MG/100 ML 100 MG/100 ML BAG IV SCH ×3 (05:32→21:32)
[2019-01-26] MEDS: FEOSOL PO SCH ×2 (10:17→21:33)
[2019-01-26] MEDS ORDERED: ZITHROMAX PO ONE (11:22)
--- NOTE | 2019-01-26 11:58 | Progress Note ---
Assessment and Plan - Patient Problems (1) (normal spontaneous vaginal delivery) Onset Date: 01/26/19 Current Visit: No Status: Acute Plan to address problem: A: S/P - PPD #2 Doing well Sepsis - improving on IV Rocephin and Gentamycin P: Continue current management as per Hospitalist (2) Sepsis Onset Date: 01/26/19 Current Visit: Yes Status: Suspected Qualifiers: Sepsis type: puerperal sepsis Sepsis acute organ dysfunction status: without acute organ dysfunction Qualified Code(s): O85 - Puerperal sepsis Subjective - Subjective Date of service: 01/26/19 Principal diagnosis: s/p - PPD #2; Sepsis Interval history: Pt is feeling much better today. Complains of back ache. Patient reports: appetite normal, voiding normally, pain well controlled, flatus, no dizzy ambulation, no nauseated : doing well Objective - Vital Signs Latest vital signs: Vital Signs Temp Pulse Pulse Resp BP BP Pulse Ox 01/26/19 08:00 98.8 F 01/26/19 07:03 13 01/26/19 04:00 71 18 98 01/26/19 03:49 97.6 F 01/26/19 00:00 84 18 97 01/25/19 23:38 97.8 F 01/25/19 20:36 25 H 01/25/19 20:00 99.3 F 01/25/19 19:51 131 H 33 H 98/41 98 01/25/19 19:41 142 H 36 H 98/41 99 01/25/19 19:31 137 H 26 H 98/41 99 01/25/19 19:20 133 H 30 H 98/41 99 01/25/19 19:11 142 H 23 101/44 99 01/25/19 19:00 144 H 30 H 101/44 99 01/25/19 18:51 144 H 30 H 83/31 98 01/25/19 18:40 142 H 30 H 82/43 99 01/25/19 18:31 147 H 28 H 96/40 98 01/25/19 18:20 149 H 27 H 96/40 97 01/25/19 18:11 156 H 32 H 97/34 98 01/25/19 18:00 147 H 24 90/40 98 01/25/19 17:51 152 H 34 H 99/37 97 01/25/19 17:40 150 H 32 H 99/37 98 01/25/19 17:33 148 H 97/34 01/25/19 17:01 157 H 22 106/34 98 01/25/19 16:51 156 H 33 H 106/34 97 01/25/19 16:41 155 H 34 H 123/43 99 01/25/19 16:31 158 H 37 H 115/38 98 01/25/19 16:21 159 H 35 H 115/38 99 01/25/19 16:11 36 H 123/43 99 01/25/19 16:01 158 H 38 H 123/43 100 01/25/19 16:00 97.1 F L 01/25/19 15:58 97.1 F L 162 H 36 H 125/50 100 01/25/19 15:51 163 H 31 H 138/72 100 01/25/19 15:41 164 H 15 138/72 99 01/25/19 15:31 161 H 23 138/72 01/25/19 15:20 149 H 21 98 01/25/19 15:14 157 H 15 01/25/19 14:14 93.8 F L 01/25/19 13:57 98/59 100 01/25/19 13:06 72 20 93/52 100 01/25/19 12:30 92.8 F L 20 Intake and Output 01/25/19 01/26/19 01/26/19 22:59 06:59 14:59 Intake Total 1350 11.667 550 Output Total 1 Balance 1349 11.667 550 Intake: IV 1100 11.667 GENTAMICIN/NS 100 MG/100 100 ML 100 mg In 100 ml @ 200 mls/hr IV Q8H [facility] Rx#: [id number] Lactated Ringers 1,000 ml 1000 @ 125 mls/hr IV DIRECT [facility] Rx#:[id number] ROCEPHIN/NS 1 GM/50 ML 1 11.667 gm In 50 ml @ 100 mls/hr IV Q12H [facility] Rx#:[id number] Oral 550 Intake, Free Water 250 Output: Pad Count 1 Other: Total, Intake Amount 550 Voiding Method Bedpan # Voids Void 1 1,500 - Exam Cardiovascular: Present: Regular rate Lungs: Present: Clear to auscultation Abdomen: Present: normal appearance, soft Uterus: Present: normal, firm, fundal height below umbilicus Extremities: Present: normal - Labs Labs: Abnormal lab results 01/25/19 01/25/19 01/25/19 Range/Units 11:42 14:49 14:49 WBC 34.3 H (4.5-11.0) K/mm3 MCH 26 L (28-32) pg RDW 17.3 H (13.2-15.2) % Seg Neuts % (Manual) 73.5 H (40.0-70.0) % Lymphocytes % (Manual) 6.5 L (13.4-35.0) % Seg Neutrophils # Man 25.2 H (1.8-7.7) K/mm3 Monocytes # (Manual) 1.5 H (0.0-0.8) K/mm3 TSH 4.320 H (0.270-4.200) mlU/mL Urine WBC (Auto) > 182.0 H (0.0-6.0) /HPF
[2019-01-27] MEDS: IBUPROFEN PO SCH ×4 (01:36→23:10)
[2019-01-27] MEDS: ROCEPHIN/NS 1 GM/50 ML 1 GM/50 ML BAG IV SCH ×2 (01:37→23:19)
--- NOTE | 2019-01-27 06:15 | Progress Note ---
Assessment and Plan (1) Sepsis Current Visit: Yes Status: Suspected Plan to address problem: Continue IV antibiotic therpay ---IV Rocephin.IVF resuscitation therapy, (2) Agitation Current Visit: Yes Status: Acute Plan to address problem: Suspect possible withdrawl syndrome: UDS, Banana bag, supportive care, hold benzodiazepines at this time,. (3) Hypokalemia Current Visit: Yes Status: Acute Plan to address problem: dietary repletion, repeat bmp in am, (4) Hypothermia Current Visit: Yes Status: Acute Qualifiers: Encounter type: initial encounter Qualified Code(s): T68.XXXA - Hypothermia, initial encounter Plan to address problem: Warming blankets, serial body core temperature check q shift, thyroid panel, sup portive care. Improved Subjective Date of service: 01/26/19 Principal diagnosis: s/p - PPD #2; Sepsis Interval history: 23 YO Female with Obesity S/P on 01/24. Consult placed for suspected Sepsis /Pyelonephritis. Pt seen and evaluated upon arrival to [facility]. Pt resting comfortably, and mildly confused, agitated, and tachycardic with heart rate around 120 and systolic blood pressure in the 90's. Pt is also hypothermic. Pt care plan discussed with Dr. Galicia. Severe UTI. Objective - Constitutional Vitals: Vital Signs - 12hr 01/26/19 01/26/19 01/26/19 18:20 18:30 18:40 Temperature Pulse Rate 88 89 87 Pulse Rate [ From Monitor] Respiratory 18 18 18 Rate Blood Pressure 106/61 106/61 106/61 O2 Sat by Pulse 100 100 100 Oximetry 01/26/19 01/26/19 01/26/19 18:50 19:00 19:10 Temperature Pulse Rate 90 87 92 H Pulse Rate [ From Monitor] Respiratory 21 21 19 Rate Blood Pressure 106/61 97/63 97/63 O2 Sat by Pulse 100 100 100 Oximetry 01/26/19 01/26/19 01/26/19 19:20 19:30 19:40 Temperature Pulse Rate 93 H 91 H 91 H Pulse Rate [ From Monitor] Respiratory 22 22 22 Rate Blood Pressure 97/63 97/63 97/63 O2 Sat by Pulse 100 100 100 Oximetry 01/26/19 01/26/19 01/26/19 19:50 20:00 20:10 Temperature 97.8 F Pulse Rate 91 H 88 96 H Pulse Rate [ 103 H From Monitor] Respiratory 23 23 27 H Rate Blood Pressure 97/63 106/67 106/67 O2 Sat by Pulse 100 100 100 Oximetry 01/26/19 01/26/19 01/27/19 20:20 23:21 00:00 Temperature 97.9 F Pulse Rate 95 H Pulse Rate [ 126 H From Monitor] Respiratory 24 23 Rate Blood Pressure 106/67 O2 Sat by Pulse 100 100 Oximetry 01/27/19 01/27/19 01/27/19 03:50 03:52 04:00 Temperature 99.9 F H 99.9 F H Pulse Rate Pulse Rate [ 107 H From Monitor] Respiratory 27 H Rate Blood Pressure O2 Sat by Pulse 100 Oximetry General appearance: Present: no acute distress, well-nourished - EENT Eyes: PERRL, EOM intact ENT: hearing intact, clear oral mucosa Ears: bilateral: normal - Neck Neck: supple, normal ROM - Respiratory Respiratory effort: normal Respiratory: bilateral: CTA - Breasts Breasts: normal - Cardiovascular Heart rate: 78 Rhythm: regular Heart Sounds: Present: S1 & S2. Absent: gallop, rub Extremities: no ischemia, pulses intact, No edema, normal color, Full ROM - Gastrointestinal General gastrointestinal: Present: soft, non-tender, non-distended, normal bowel sounds - Genitourinary Female genitourinary: normal - Integumentary Integumentary: clear, warm, dry - Musculoskeletal Musculoskeletal: 1, strength equal bilaterally - Neurologic Neurologic: moves all extremities - Psychiatric Psychiatric: memory intact, appropriate mood/affect, intact judgment & insight - Allied health notes Allied health notes reviewed: nursing, case management - Labs CBC & Chem 7: 01/25/19 14:49 01/24/19 21:42
[2019-01-27] MEDS: GENTAMICIN/NS 100 MG/100 ML 100 MG/100 ML BAG IV SCH ×3 (06:49→23:18)
[2019-01-27 08:28] LABS: BUN/Creatinine Ratio 13; Blood Urea Nitrogen 10 mg/dL (7-17); Calcium 7.6 mg/dL (8.4-10.2); Hemolysis Index 0
[2019-01-27] MEDS: LACTATED RINGERS 1,000 ML IV SCH ×2 (08:41→23:18)
[2019-01-27] MEDS: FEOSOL PO SCH ×3 (10:27→23:19)
--- NOTE | 2019-01-27 14:45 | Progress Note ---
Assessment and Plan - Patient Problems (1) (normal spontaneous vaginal delivery) Current Visit: Yes Status: Acute Plan to address problem: Continue routine care. (2) Sepsis Current Visit: Yes Status: Acute Plan to address problem: Patient appears stable now. She remains afebrile. Continue IV antibiotics. CbC today. (3) Chlamydia Current Visit: Yes Status: Acute Plan to address problem: Zithromax 1 gm PO was given. (4) Trichomonal infection Current Visit: Yes Status: Acute Plan to address problem: Flagyl 2 gm PO was given. (5) History of inadequate care Current Visit: Yes Status: Acute (6) Pyelonephritis Current Visit: Yes Status: Acute (7) Hypokalemia Current Visit: Yes Status: Acute Plan to address problem: Repeat potassium ordered. Subjective - Subjective Date of service: 01/27/19 Principal diagnosis: s/p - PPD #2; Sepsis Interval history: Patient is a 23 year old , who is S/P at 38 weeks and 3 days gestation on 01/24/19 in the ambulance on her way to the hospital at around 5 PM. On admission, she was afebrile with no specific complaint. The placenta was in situ and was delivered spontaneously shortly after her arrival. Her vitals were stable. She was then transferred to the post floor. Her CBC drawn on admission resulted later that night and showed a WBC of 32. That report was not called in to the provider electronic prepress operator. The following morning, her WBC was 34. Sepsis workup was initiated. She was started on IV antibiotics. Medical consult was done. Patient was then transferred to the ICU. Abdominal CT scan was normal and showed no abnormal intra-abdominal collection or abcess. Chest X-ray was normal. Urine and blood cultures are negative today (after 48 hrs). She had scant care with only one visit at [facility] at 36 weeks. Her genital cultures did grew chlamydia and trichomonas and urine grew E.Coli. She was called when she missed her follow up care apppointment but she did not return or responded to the messages that were left for her to call. She was also given zithromax and flagyl for the above infection on admission. Objective - Vital Signs Latest vital signs: Vital Signs Temp Pulse Pulse Resp BP Pulse Ox 01/27/19 12:00 98.4 F 104 H 21 98 01/27/19 08:00 110 H 22 97 01/27/19 07:50 98.1 F 01/27/19 06:45 21 01/27/19 04:00 107 H 27 H 100 01/27/19 03:52 99.9 F H 01/27/19 03:50 99.9 F H 01/27/19 00:00 126 H 23 100 01/26/19 23:21 97.9 F 01/26/19 20:20 95 H 24 106/67 100 01/26/19 20:10 96 H 27 H 106/67 100 01/26/19 20:00 97.8 F 88 103 H 23 106/67 100 01/26/19 19:50 91 H 23 97/63 100 01/26/19 19:40 91 H 22 97/63 100 01/26/19 19:30 91 H 22 97/63 100 01/26/19 19:20 93 H 22 97/63 100 01/26/19 19:10 92 H 19 97/63 100 01/26/19 19:00 87 21 97/63 100 01/26/19 18:50 90 21 106/61 100 01/26/19 18:40 87 18 106/61 100 01/26/19 18:30 89 18 106/61 100 01/26/19 18:20 88 18 106/61 100 01/26/19 18:10 83 19 106/61 100 01/26/19 18:00 88 24 106/61 100 01/26/19 17:50 84 15 104/62 100 01/26/19 17:40 96 H 24 104/62 100 01/26/19 17:30 96 H 24 104/62 100 01/26/19 17:20 90 21 104/62 100 01/26/19 17:10 91 H 19 104/62 100 01/26/19 17:00 88 19 104/62 100 01/26/19 16:50 94 H 19 108/55 100 01/26/19 16:40 94 H 18 108/55 100 01/26/19 16:30 99 H 24 108/55 100 01/26/19 16:20 92 H 24 108/55 100 01/26/19 16:10 89 22 108/55 100 01/26/19 16:00 98.2 F 92 H 92 H 21 108/55 100 09/02/19 15:50 89 21 104/59 100 01/26/19 15:40 90 24 104/59 100 01/26/19 15:30 91 H 25 H 104/59 100 01/26/19 15:20 105 H 31 H 104/59 99 01/26/19 15:10 94 H 23 104/59 100 01/26/19 15:00 89 23 104/59 100 01/26/19 14:50 92 H 21 111/69 100 01/26/19 14:40 90 18 100 Intake and Output 01/26/19 01/27/19 01/27/19 23:59 07:59 15:59 Intake Total 1150 1000 Balance 1150 1000 Intake: IV 1150 1000 GENTAMICIN/NS 100 MG/100 100 ML 100 mg In 100 ml @ 200 mls/hr IV Q8H [facility] Rx#: [id number] Lactated Ringers 1,000 ml 1000 1000 @ 125 mls/hr IV DIRECT [facility] Rx#:[id number] ROCEPHIN/NS 1 GM/50 ML 1 50 gm In 50 ml @ 100 mls/hr IV Q12H [facility] Rx#:[id number] Other: Voiding Method Bedpan Bedpan Bedpan - Exam Cardiovascular: Present: Normal S1, Normal S2 Lungs: Present: Clear to auscultation Vulva: both: normal Deep Tendon Reflex Grade: Normal +2 - Labs Labs: Abnormal lab results 01/27/19 Range/Units 07:59 Potassium 3.4 L (3.6-5.0) mmol/L Chloride 109.1 H (98-107) mmol/L Carbon Dioxide 21 L (22-30) mmol/L Calcium 7.6 L (8.4-10.2) mg/dL
[2019-01-27 16:12] LABS: Hematocrit 29.5 % (30.3-42.9); Hemoglobin 9.2 gm/dl (10.1-14.3); Mean Corpuscular HGB Conc 31 % (30-34); Mean Corpuscular Volume 81 fl (79-97); Platelet Count 284 K/mm3 (140-440); Red Blood Count 3.65 M/mm3 (3.65-5.03); Red Cell Distribution Width 17.2 % (13.2-15.2)
[2019-01-27 17:02] LABS: Basophils % (Manual) 0 % (0.0-1.8); Eosinophils % (Manual) 0 % (0.0-4.3); Total Cells Counted 100
[2019-01-27 17:03] LABS: Hypochromasia 1+
[2019-01-27 17:06] LABS: Alanine Aminotransferase 9 units/L (7-56); BUN/Creatinine Ratio 13; Blood Urea Nitrogen 10 mg/dL (7-17); Calcium 7.9 mg/dL (8.4-10.2); Hemolysis Index 3
[2019-01-28] MEDS: IBUPROFEN PO SCH ×4 (01:14→17:52)
--- NOTE | 2019-01-28 05:29 | Progress Note ---
Assessment and Plan (1) Sepsis Current Visit: Yes Status: Suspected --IV Rocephin.IVF resuscitation therapy, Prelimnary cultures negative (2) Agitation Current Visit: Yes Status: Acute Plan to address problem: Suspect possible withdrawl syndrome: UDS, Banana bag, supportive care, hold benzodiazepines at this time,. Agitation minimal (3) Hypokalemia Current Visit: Yes Status: Acute Plan to address problem: Supplemented (4) Hypothermia Current Visit: Yes Status: Acute Qualifiers: Encounter type: initial encounter Qualified Code(s): T68.XXXA - Hypothermia, initial encounter Plan to address problem: Resolved (5) Severe Malnutrition Albumin 2.0 Dietitian consult requested Dispo Transfer from [facility] to regular floor Subjective Date of service: 01/27/19 Principal diagnosis: s/p - PPD #3; Sepsis Interval history: 23 YO Female with Obesity S/P Spontaneous Vaginal Delivery on 01/24. Consult placed for suspected Sepsis/Pyelonephritis. Pt seen and evaluated upon arrival to [facility]. Pt resting comfortably, and mildly confused, agitated, and tachycardic with heart rate around 120 and systolic blood pressure in the 90's. Pt is also hypothermic. Pt care plan discussed with Dr. Galicia. Severe reg UTI and sepsis. WBC was [address]. Symptomatically better. Temp of 99.9 around 3am Otherwise comfortable and cheerful Objective - Constitutional Vitals: Vital Signs - 12hr 01/27/19 01/27/19 01/27/19 17:20 17:30 17:40 Temperature Pulse Rate 77 78 99 H Pulse Rate [ Apical] Pulse Rate [ From Monitor] Respiratory 17 19 22 Rate Blood Pressure 116/68 116/68 116/68 O2 Sat by Pulse 98 98 94 Oximetry 01/27/19 01/27/19 01/27/19 17:50 18:00 18:10 Temperature Pulse Rate 94 H 89 88 Pulse Rate [ Apical] Pulse Rate [ From Monitor] Respiratory 20 18 17 Rate Blood Pressure 116/68 116/68 116/68 O2 Sat by Pulse 100 100 100 Oximetry 01/27/19 01/27/19 01/27/19 18:20 18:30 18:40 Temperature Pulse Rate 92 H 96 H 94 H Pulse Rate [ Apical] Pulse Rate [ From Monitor] Respiratory 13 19 17 Rate Blood Pressure 116/68 116/68 116/68 O2 Sat by Pulse 100 100 100 Oximetry 01/27/19 01/27/19 01/27/19 18:50 19:00 19:10 Temperature Pulse Rate 102 H 101 H 97 H Pulse Rate [ Apical] Pulse Rate [ From Monitor] Respiratory 24 22 17 Rate Blood Pressure 116/68 116/68 116/68 O2 Sat by Pulse 100 100 100 Oximetry 01/27/19 01/27/19 01/27/19 19:20 19:30 19:40 Temperature Pulse Rate 91 H 97 H 88 Pulse Rate [ Apical] Pulse Rate [ From Monitor] Respiratory 19 15 22 Rate Blood Pressure 116/68 116/68 116/68 O2 Sat by Pulse 100 100 100 Oximetry 01/27/19 01/27/19 01/27/19 19:50 20:00 20:10 Temperature Pulse Rate 97 H 87 Pulse Rate [ Apical] Pulse Rate [ From Monitor] Respiratory 20 21 Rate Blood Pressure 116/68 116/68 116/68 O2 Sat by Pulse 100 100 100 Oximetry 01/27/19 01/28/19 22:35 00:13 Temperature 98.2 F Pulse Rate 85 Pulse Rate [ 82 Apical] Pulse Rate [ 82 From Monitor] Respiratory 18 18 Rate Blood Pressure 123/74 O2 Sat by Pulse 98 100 Oximetry General appearance: Present: no acute distress, well-nourished - EENT Eyes: PERRL, EOM intact ENT: hearing intact, clear oral mucosa Ears: bilateral: normal - Neck Neck: supple, normal ROM - Respiratory Respiratory effort: normal Respiratory: bilateral: CTA - Breasts Breasts: normal - Cardiovascular Heart rate: 90 Rhythm: regular Heart Sounds: Present: S1 & S2. Absent: gallop, rub Extremities: no ischemia, pulses intact, No edema, normal color, Full ROM - Gastrointestinal General gastrointestinal: Present: soft, non-tender, non-distended, normal bowel sounds - Genitourinary Female genitourinary: normal - Integumentary Integumentary: clear, warm, dry - Musculoskeletal Musculoskeletal: 1, strength equal bilaterally - Neurologic Neurologic: moves all extremities - Psychiatric Psychiatric: appropriate mood/affect, intact judgment & insight, memory intact, cooperative - Labs CBC & Chem 7: 01/27/19 15:57 01/27/19 15:57 Labs: Abnormal lab results 01/27/19 01/27/19 01/27/19 Range/Units 07:59 15:57 15:57 WBC 23.7 H (4.5-11.0) K/mm3 Hgb 9.2 L (10.1-14.3) gm/dl Hct 29.5 L (30.3-42.9) % MCH 25 L (28-32) pg RDW 17.2 H (13.2-15.2) % Seg Neuts % (Manual) 90.0 H (40.0-70.0) % Lymphocytes % (Manual) 8.0 L (13.4-35.0) % Seg Neutrophils # Man 21.3 H (1.8-7.7) K/mm3 Potassium 3.4 L (3.6-5.0) mmol/L Chloride 109.1 H 108.5 H (98-107) mmol/L Carbon Dioxide 21 L 21 L (22-30) mmol/L Calcium 7.6 L 7.9 L (8.4-10.2) mg/dL Total Protein 5.7 L (6.3-8.2) g/dL Albumin 2.0 L (3.9-5) g/dL
[2019-01-28] MEDS: GENTAMICIN/NS 100 MG/100 ML 100 MG/100 ML BAG IV SCH ×3 (06:09→23:59)
[2019-01-28] MEDS: LACTATED RINGERS 1,000 ML IV SCH ×2 (08:40→14:35)
[2019-01-28] MEDS: FEOSOL PO SCH (09:26)
--- NOTE | 2019-01-28 10:21 | Progress Note ---
Assessment and Plan Assessment and plan: (1) Sepsis Current Visit: Yes Status: Suspected --IV Rocephin.IVF resuscitation therapy, Prelimnary cultures negative (2) Agitation Current Visit: Yes Status: Acute Plan to address problem: Suspect possible withdrawl syndrome: UDS, Banana bag, supportive care, hold benzodiazepines at this time,. Agitation minimal (3) Hypokalemia Current Visit: Yes Status: Acute Plan to address problem: Supplemented (4) Hypothermia Current Visit: Yes Status: Acute Qualifiers: Encounter type: initial encounter Qualified Code(s): T68.XXXA - Hypothermia, initial encounter Plan to address problem: Resolved (5) Severe Malnutrition Albumin 2.0 Dietitian consult requested Dispo Transfer from [facility] to regular floor Hospitalist Physical - Constitutional Vitals: Temp Pulse Resp BP Pulse Ox 97.7 F 98 H 14 114/64 96 01/28/19 08:27 01/28/19 08:27 01/28/19 08:27 01/28/19 08:27 01/28/19 08:27 General appearance: Present: no acute distress, well-nourished Results - Labs CBC & Chem 7: 01/27/19 15:57 01/27/19 15:57 Labs: Laboratory Last Values WBC 23.7 K/mm3 (4.5-11.0) H 01/27/19 15:57 RBC 3.65 M/mm3 (3.65-5.03) 01/27/19 15:57 Hgb 9.2 gm/dl (10.1-14.3) L 01/27/19 15:57 Hct 29.5 % (30.3-42.9) L 01/27/19 15:57 MCV 81 fl (79-97) 01/27/19 15:57 MCH 25 pg (28-32) L 01/27/19 15:57 MCHC 31 % (30-34) 01/27/19 15:57 RDW 17.2 % (13.2-15.2) H 01/27/19 15:57 Plt Count 284 K/mm3 (140-440) 01/27/19 15:57 Add Manual Diff Complete 01/27/19 15:57 Total Counted 100 01/27/19 15:57 Seg Neutrophils % Chief Embalmer 01/25/19 14:49 Seg Neuts % (Manual) 90.0 % (40.0-70.0) H 01/27/19 15:57 0 % 01/27/19 15:57 8.0 % (13.4-35.0) L 01/27/19 15:57 Reactive Lymphs % (Man) 0 % 01/27/19 15:57 2.0 % (0.0-7.3) 01/27/19 15:57 0 % (0.0-4.3) 01/27/19 15:57 0 % (0.0-1.8) 01/27/19 15:57 0 % 01/27/19 15:57 0 % 01/27/19 15:57 0 % 01/27/19 15:57 0 % 01/27/19 15:57 Nucleated RBC % Not Reportable 01/27/19 15:57 Seg Neutrophils # Man 21.3 K/mm3 (1.8-7.7) H 01/27/19 15:57 Band Neutrophils # 0.0 K/mm3 01/27/19 15:57 1.9 K/mm3 (1.2-5.4) 01/27/19 15:57 Abs React Lymphs (Man) 0.0 K/mm3 01/27/19 15:57 0.5 K/mm3 (0.0-0.8) 01/27/19 15:57 0.0 K/mm3 (0.0-0.4) 01/27/19 15:57 0.0 K/mm3 (0.0-0.1) 01/27/19 15:57 0.0 K/mm3 01/27/19 15:57 0.0 K/mm3 01/27/19 15:57 0.0 K/mm3 01/27/19 15:57 Blast Cells # 0.0 K/mm3 01/27/19 15:57 WBC Morphology Not Reportable 01/27/19 15:57 Hypersegmented Neuts Not Reportable 01/27/19 15:57 Hyposegmented Neuts Not Reportable 01/27/19 15:57 Hypogranular Neuts Not Reportable 01/27/19 15:57 Not Reportable 01/27/19 15:57 Not Reportable 01/27/19 15:57 Not Reportable 01/27/19 15:57 Not Reportable 01/27/19 15:57 Not Reportable 01/27/19 15:57 Not Reportable 01/27/19 15:57 Not Reportable 01/27/19 15:57 Not Reportable 01/27/19 15:57 Plt Clumps, EDTA Not Reportable 01/27/19 15:57 Not Reportable 01/27/19 15:57 Not Reportable 01/27/19 15:57 Not Reportable 01/27/19 15:57 Plt Morphology Comment Not Reportable 01/27/19 15:57 RBC Morphology Not Reportable 01/27/19 15:57 Dimorphic RBCs Not Reportable 01/27/19 15:57 Not Reportable 01/27/19 15:57 1+ 01/27/19 15:57 Not Reportable 01/27/19 15:57 Not Reportable 01/27/19 15:57 Not Reportable 01/27/19 15:57 Not Reportable 01/27/19 15:57 Not Reportable 01/27/19 15:57 Not Reportable 01/27/19 15:57 Not Reportable 01/27/19 15:57 Not Reportable 01/27/19 15:57 Not Reportable 01/27/19 15:57 Not Reportable 01/27/19 15:57 Not Reportable 01/27/19 15:57 Not Reportable 01/27/19 15:57 Not Reportable 01/27/19 15:57 Not Reportable 01/27/19 15:57 Not Reportable 01/27/19 15:57 Not Reportable 01/27/19 15:57 Not Reportable 01/27/19 15:57 Acanthocytes (Spur) Not Reportable 01/27/19 15:57 Rouleaux Not Reportable 01/27/19 15:57 Not Reportable 01/27/19 15:57 Not Reportable 01/27/19 15:57 Not Reportable 01/27/19 15:57 Not Reportable 01/27/19 15:57 Hem Pathologist Commnt No 01/27/19 15:57 706 mg/dl (211-480) H 01/24/19 21:42 Sodium 142 mmol/L (137-145) 01/27/19 15:57 Potassium 3.7 mmol/L (3.6-5.0) 01/27/19 15:57 Chloride 108.5 mmol/L (98-107) H 01/27/19 15:57 Carbon Dioxide 21 mmol/L (22-30) L 01/27/19 15:57 16 mmol/L 01/27/19 15:57 BUN 10 mg/dL (7-17) 01/27/19 15:57 0.8 mg/dL (0.7-1.2) 01/27/19 15:57 Estimated GFR > 60 ml/min 01/27/19 15:57 13 % 01/27/19 15:57 Glucose 90 mg/dL (65-100) 01/27/19 15:57 5.6 % (4-6) 01/25/19 06:46 Lactic Acid 1.00 mmol/L (0.7-2.0) 01/26/19 03:46 6.6 mg/dL (3.5-7.6) 01/24/19 21:42 Calcium 7.9 mg/dL (8.4-10.2) L 01/27/19 15:57 0.20 mg/dL (0.1-1.2) 01/27/19 15:57 AST 12 units/L (5-40) 01/27/19 15:57 ALT 9 units/L (7-56) 01/27/19 15:57 98 units/L (35-129) 01/27/19 15:57 195 units/L (91-180) H 01/24/19 21:42 5.7 g/dL (6.3-8.2) L 01/27/19 15:57 2.0 g/dL (3.9-5) L 01/27/19 15:57 0.5 % 01/27/19 15:57 TSH 4.320 mlU/mL (0.270-4.200) H 01/25/19 14:49 Free T4 0.83 ng/dL (0.76-1.46) 01/25/19 20:14 [place] (Yellow) 01/25/19 11:42 Cloudy (Clear) 01/25/19 11:42 6.0 (5.0-7.0) 01/25/19 11:42 Ur Specific [place] 1.015 (1.003-1.030) 01/25/19 11:42 100 mg/dl mg/dL (Negative) 01/25/19 11:42 Neg mg/dL (Negative) 01/25/19 11:42 Neg mg/dL (Negative) 01/25/19 11:42 Sm (Negative) 01/25/19 11:42 Neg (Negative) 01/25/19 11:42 Neg (Negative) 01/25/19 11:42 < 2.0 mg/dL (<2.0) 01/25/19 11:42 Ur Leukocyte Esterase Mod (Negative) 01/25/19 11:42 > 182.0 /HPF (0.0-6.0) H 01/25/19 11:42 17.0 /HPF (0.0-6.0) 01/25/19 11:42 U Epithel Cells (Auto) 1.0 /HPF (0-13.0) 01/25/19 11:42 1+ /HPF (Negative) 01/25/19 11:42 3+ /HPF 01/25/19 11:42 Gentamicin Trough 1.9 ug/mL (0-2.0) 01/27/19 13:26 Presumptive negative 01/25/19 11:42 Presumptive negative 01/25/19 11:42 Ur Barbiturates Screen Presumptive negative 01/25/19 11:42 Ur Phencyclidine Scrn Presumptive negative 01/25/19 11:42 Ur Amphetamines Screen Presumptive negative 01/25/19 11:42 U Benzodiazepines Scrn Presumptive negative 01/25/19 11:42 Presumptive negative 01/25/19 11:42 U Marijuana (THC) Screen Presumptive negative 01/25/19 11:42 Disclamer 01/25/19 11:42 RPR Nonreactive (Nonreactive) 01/24/19 21:42 HIV 1&2 Antibody Rapid Non react (Non React) 01/25/19 13:26 Non react (Non React) 01/25/19 13:26 Blood Type A POSITIVE 01/24/19 03:09 Antibody Screen Negative 01/24/19 03:09 Active Medications - Current Medications Current Medications: Generic Name Dose Route Start Last Admin Trade Name Freq PRN Reason Stop Dose Admin Acetaminophen 650 mg 01/24/19 18:25 Tylenol PO Q4H PRN Pain MILD(1-3)/Fever >100.5/MARIANO Ferrous Sulfate 325 mg 01/24/19 22:00 01/28/19 09:26 Feosol PO 325 mg BID [facility] Administration Oxytocin/Sodium Chloride 20 units in 1,000 mls @ 125 mls/hr 01/24/19 19:00 01/24/19 18:29 Pitocin/Ns 20 Unit/1000ml Drip IV 125 mls/hr DIRECT [facility] Administration Lactated Ringer's 1,000 mls @ 125 mls/hr 01/24/19 19:00 01/28/19 08:40 Lactated Ringers IV 125 mls/hr DIRECT [facility] Administration Gentamicin Sulfate/Sodium Chloride 100 mg in 100 mls @ 200 mls/hr 01/26/19 14:00 01/28/19 06:09 Gentamicin/Ns 100 Mg/100 Ml IV 200 mls/hr Q8H [facility] Administration Ceftriaxone Sodium 1 gm in 50 mls @ 100 mls/hr 01/27/19 22:00 01/27/19 23:19 Rocephin/Ns 1 Gm/50 Ml IV 100 mls/hr Q24H [facility] Administration Protocol Ibuprofen 600 mg 01/24/19 19:00 01/28/19 06:08 Ibuprofen PO 600 mg Q6H [facility] Administration Magnesium Hydroxide 30 ml 01/24/19 18:25 Milk Of Magnesia PO HS PRN Constipation Multi-Ingredient Ointment 1 applic 01/24/19 18:25 Lansinoh TP PRN PRN Sore Nipples Terbutaline Sulfate 0.25 mg 01/24/19 18:20 Brethine SUB-Q ONCE PRN Hyperstimulation/Hypertonicity Witch Sarah/Glycerin 1 each 01/24/19 18:25 Tucks Pad TP PRN PRN Hemorrhoid/cleansing/soothing
[2019-01-28] MEDS ORDERED: DULCOLAX PR PRN (14:44)
[2019-01-28] MEDS ORDERED: TUCKS PAD TP PRN (14:44)
[2019-01-28] MEDS ORDERED: ZOFRAN IV PRN (14:44)
[2019-01-28] MEDS ORDERED: BENADRYL PO PRN (14:44)
[2019-01-28] MEDS ORDERED: PHENERGAN PO PRN (14:44)
[2019-01-28] MEDS ORDERED: PHENERGAN PR PRN (14:44)
[2019-01-28] MEDS ORDERED: MILK OF MAGNESIA PO PRN (14:44)
[2019-01-28] MEDS ORDERED: TYLENOL PO PRN (14:44)
[2019-01-28] MEDS ORDERED: LANSINOH TP PRN (14:44)
--- NOTE | 2019-01-28 14:53 | Progress Note ---
Assessment and Plan - Patient Problems (1) (normal spontaneous vaginal delivery) Current Visit: Yes Status: Acute Plan to address problem: Continue routine care. (2) Sepsis Current Visit: Yes Status: Acute Plan to address problem: Patient appears stable now. She remains afebrile. Continue IV antibiotics. CBC today. (3) Chlamydia Current Visit: Yes Status: Acute Plan to address problem: Zithromax 1 gm PO was given. (4) Trichomonal infection Current Visit: Yes Status: Acute Plan to address problem: Flagyl 2 gm PO was given. (5) Pyelonephritis Current Visit: Yes Status: Acute (6) Hypokalemia Current Visit: Yes Status: Acute Plan to address problem: Repeat potassium. (7) History of inadequate care Current Visit: Yes Status: Acute Subjective - Subjective Date of service: 01/28/19 Principal diagnosis: s/p - PPD #3; Sepsis Interval history: Patient is a 23 year old , who is S/P at 38 weeks and 3 days gestation on 01/24/19 in the ambulance on her way to the hospital at around 5 PM. On admission, she was afebrile with no specific complaint. The placenta was in situ and was delivered spontaneously shortly after her arrival. Her vitals were stable. She was then transferred to the post floor. Her CBC drawn on admission resulted later that night and showed a WBC of 32. That report was not called in to the provider cotton agent. The following morning, her WBC was 34. Sepsis workup was initiated. She was started on IV antibiotics. Medical consult was done. Patient was then transferred to the ICU. Abdominal CT scan was normal and showed no abnormal intra-abdominal collection or abcess. Chest X-ray was normal. Urine and blood cultures are negative today (after 48 hrs). She had scant care with only one visit at [facility] at 36 weeks. Her genital cultures did grew chlamydia and trichomonas and urine grew E.Coli. She was called when she missed her follow up care apppointment but she did not return or responded to the messages that were left for her to call. She was also given zithromax and flagyl for the above infection on admission. Patient was transferred from the ICU to the post floor. She denies any complaint. Her WBC went down to 23 yesterday. She remains afebrile. Objective - Vital Signs Latest vital signs: Vital Signs Temp Pulse Pulse Pulse Pulse Resp BP 01/28/19 11:45 97.3 F L 81 18 01/28/19 10:00 109 H 98 H 108 H 98 H 14 01/28/19 08:27 97.7 F 98 H 14 114/64 01/28/19 06:08 18 01/28/19 04:33 98.2 F 104 H 18 126/78 01/28/19 00:13 98.2 F 85 18 123/74 01/27/19 23:14 93 H 01/27/19 22:35 82 82 18 01/27/19 20:10 116/68 01/27/19 20:00 87 21 116/68 01/27/19 19:50 97 H 20 116/68 01/27/19 19:40 88 22 116/68 01/27/19 19:30 97 H 15 116/68 01/27/19 19:20 91 H 19 116/68 01/27/19 19:10 97 H 17 116/68 01/27/19 19:00 101 H 22 116/68 01/27/19 18:50 102 H 24 116/68 01/27/19 18:40 94 H 17 116/68 01/27/19 18:30 96 H 19 116/68 01/27/19 18:20 92 H 13 116/68 01/27/19 18:10 88 17 116/68 01/27/19 18:00 89 18 116/68 01/27/19 17:50 94 H 20 116/68 01/27/19 17:40 99 H 22 116/68 01/27/19 17:30 78 19 116/68 01/27/19 17:20 77 17 116/68 01/27/19 17:10 82 20 116/68 01/27/19 17:00 77 18 116/68 01/27/19 16:50 81 14 121/74 01/27/19 16:40 88 23 121/74 01/27/19 16:30 89 18 120/70 01/27/19 16:20 92 H 27 H 120/70 01/27/19 16:10 88 18 120/70 01/27/19 16:00 94 H 109 H 24 120/70 01/27/19 15:50 89 17 120/70 01/27/19 15:40 91 H 21 120/70 01/27/19 15:30 91 H 16 120/70 01/27/19 15:20 87 20 120/70 01/27/19 15:10 83 20 120/70 01/27/19 15:00 99 H 19 120/75 01/27/19 14:50 101 H 25 H 120/75 BP Pulse Ox 01/28/19 11:45 115/78 99 01/28/19 10:00 98 01/28/19 08:27 96 01/28/19 06:08 01/28/19 04:33 100 01/28/19 00:13 100 01/27/19 23:14 01/27/19 22:35 98 01/27/19 20:10 100 01/27/19 20:00 100 01/27/19 19:50 100 01/27/19 19:40 100 01/27/19 19:30 100 01/27/19 19:20 100 01/27/19 19:10 100 01/27/19 19:00 100 01/27/19 18:50 100 01/27/19 18:40 100 01/27/19 18:30 100 01/27/19 18:20 100 01/27/19 18:10 100 01/27/19 18:00 100 01/27/19 17:50 100 01/27/19 17:40 94 01/27/19 17:30 98 01/27/19 17:20 98 01/27/19 17:10 98 01/27/19 17:00 99 01/27/19 16:50 100 01/27/19 16:40 98 01/27/19 16:30 98 01/27/19 16:20 100 01/27/19 16:10 99 01/27/19 16:00 100 01/27/19 15:50 100 01/27/19 15:40 99 01/27/19 15:30 100 01/27/19 15:20 99 01/27/19 15:10 100 01/27/19 15:00 100 01/27/19 14:50 100 Intake and Output 01/27/19 01/28/19 01/28/19 23:59 07:59 15:59 Intake Total 1200 1100 739.583 Balance 1200 1100 739.583 Intake: IV 1200 1100 739.583 GENTAMICIN/NS 100 MG/100 200 100 ML 100 mg In 100 ml @ 200 mls/hr IV Q8H [facility] Rx#: [id number] Lactated Ringers 1,000 ml 1000 1000 739.583 @ 125 mls/hr IV DIRECT [facility] Rx#:[id number] Other: Voiding Method Toilet Toilet - Exam Cardiovascular: Present: Normal S1, Normal S2 Lungs: Present: Clear to auscultation Vulva: both: normal Deep Tendon Reflex Grade: Normal +2 - Labs Labs: Abnormal lab results 01/27/19 01/27/19 Range/Units 15:57 15:57 WBC 23.7 H (4.5-11.0) K/mm3 Hgb 9.2 L (10.1-14.3) gm/dl Hct 29.5 L (30.3-42.9) % MCH 25 L (28-32) pg RDW 17.2 H (13.2-15.2) % Seg Neuts % (Manual) 90.0 H (40.0-70.0) % Lymphocytes % (Manual) 8.0 L (13.4-35.0) % Seg Neutrophils # Man 21.3 H (1.8-7.7) K/mm3 Chloride 108.5 H (98-107) mmol/L Carbon Dioxide 21 L (22-30) mmol/L Calcium 7.9 L (8.4-10.2) mg/dL Total Protein 5.7 L (6.3-8.2) g/dL Albumin 2.0 L (3.9-5) g/dL
[2019-01-28 17:30] LABS: Hemoglobin 9.4 gm/dl (10.1-14.3); Mean Corpuscular HGB Conc 30 % (30-34); Mean Corpuscular Volume 81 fl (79-97); Platelet Count 313 K/mm3 (140-440); Red Blood Count 3.84 M/mm3 (3.65-5.03); Red Cell Distribution Width 17.5 % (13.2-15.2)
[2019-01-28 18:27] LABS: Hypochromasia 1+; Total Cells Counted 100
[2019-01-28] MEDS: ROCEPHIN/NS 1 GM/50 ML 1 GM/50 ML BAG IV SCH (23:00)
[2019-01-29] MEDS: FEOSOL PO SCH ×3 (00:01→22:14)
[2019-01-29] MEDS: LACTATED RINGERS 1,000 ML IV SCH (00:09)
[2019-01-29] MEDS: IBUPROFEN PO SCH ×5 (00:10→21:00)
[2019-01-29] MEDS: GENTAMICIN/NS 100 MG/100 ML 100 MG/100 ML BAG IV SCH ×3 (07:29→22:14)
--- NOTE | 2019-01-29 10:07 | Progress Note ---
Assessment and Plan - Patient Problems (1) (normal spontaneous vaginal delivery) Current Visit: Yes Status: Acute Plan to address problem: Continue routine care. (2) Sepsis Current Visit: Yes Status: Acute Plan to address problem: Patient appears stable now. She remains afebrile. Continue IV antibiotics. Anticipate discharging her home tomorrow. (3) Chlamydia Current Visit: Yes Status: Acute Plan to address problem: Zithromax 1 gm PO was given. (4) Trichomonal infection Current Visit: Yes Status: Acute Plan to address problem: Flagyl 2 gm PO was given. (5) Pyelonephritis Current Visit: Yes Status: Acute (6) Hypokalemia Current Visit: Yes Status: Acute Plan to address problem: Repeat potassium was normal. (7) History of inadequate care Current Visit: Yes Status: Acute Subjective - Subjective Date of service: 01/29/19 Principal diagnosis: s/p - PPD #3; Sepsis Interval history: Patient is a 23 year old , who is S/P at 38 weeks and 3 days gestation on 01/24/19 in the ambulance on her way to the hospital at around 5 PM. On admission, she was afebrile with no specific complaint. The placenta was in situ and was delivered spontaneously shortly after her arrival. Her vitals were stable. She was then transferred to the post floor. Her CBC drawn on admission resulted later that night and showed a WBC of 32. That report was not called in to the provider commercial front load driver. The following morning, her WBC was 34. Sepsis workup was initiated. She was started on IV antibiotics. Medical consult was done. Patient was then transferred to the ICU. Abdominal CT scan was normal and showed no abnormal intra-abdominal collection or abcess. Chest X-ray was normal. Urine and blood cultures are negative today (after 72 hrs). She had scant care with only one visit at [facility] at 36 weeks. Her genital cultures did grew chlamydia and trichomonas and urine grew E.Coli. She was called when she missed her follow up care apppointment but she did not return or responded to the messages that were left for her to call. She was also given zithromax and flagyl for the above infection on admission. Patient was transferred from the ICU to the post floor. She denies any complaint. She remains afebrile. Her WBC went down to 23 to 19 yesterday. Objective - Vital Signs Vital Signs: Vital Signs - 12hr 01/29/19 01/29/19 01/29/19 01:28 06:10 07:30 Temperature 99.0 F 97.2 F L 97.3 F L Pulse Rate 100 H 82 78 Respiratory 20 18 20 Rate Blood Pressure 119/62 112/64 107/56 O2 Sat by Pulse 96 97 95 Oximetry - Exam Cardiovascular: Normal S1, Normal S2 Lungs: Clear to auscultation Vulva: both: normal FHR: category 1 - Labs Labs: Abnormal Labs 01/24/19 01/24/19 01/24/19 03:09 21:42 21:42 WBC 32.3 H RBC 3.17 L Hgb 8.3 L Hct 25.4 L MCH 26 L RDW 16.7 H Seg Neuts % (Manual) Lymphocytes % (Manual) Nucleated RBC % Seg Neutrophils # Man Monocytes # (Manual) Basophils # (Manual) Fibrinogen 706 H Sodium 131 L Potassium 3.0 L Chloride Carbon Dioxide 20 L Glucose 158 H Calcium 8.0 L Alkaline Phosphatase 133 H Lactate Dehydrogenase 195 H Total Protein 6.2 L Albumin 2.1 L TSH Urine WBC (Auto) 01/25/19 01/25/19 01/25/19 06:46 11:42 14:49 WBC RBC Hgb 9.5 L Hct 29.7 L MCH RDW Seg Neuts % (Manual) Lymphocytes % (Manual) Nucleated RBC % Seg Neutrophils # Man Monocytes # (Manual) Basophils # (Manual) Fibrinogen Sodium Potassium Chloride Carbon Dioxide Glucose Calcium Alkaline Phosphatase Lactate Dehydrogenase Total Protein Albumin TSH 4.320 H Urine WBC (Auto) > 182.0 H 01/25/19 01/27/19 01/27/19 14:49 07:59 15:57 WBC 34.3 H 23.7 H RBC Hgb 9.2 L Hct 29.5 L MCH 26 L 25 L RDW 17.3 H 17.2 H Seg Neuts % (Manual) 73.5 H 90.0 H Lymphocytes % (Manual) 6.5 L 8.0 L Nucleated RBC % Seg Neutrophils # Man 25.2 H 21.3 H Monocytes # (Manual) 1.5 H Basophils # (Manual) Fibrinogen Sodium Potassium 3.4 L Chloride 109.1 H Carbon Dioxide 21 L Glucose Calcium 7.6 L Alkaline Phosphatase Lactate Dehydrogenase Total Protein Albumin TSH Urine WBC (Auto) 01/27/19 01/28/19 15:57 16:50 WBC 19.2 H RBC Hgb 9.4 L Hct MCH 24 L RDW 17.5 H Seg Neuts % (Manual) 77.0 H Lymphocytes % (Manual) Nucleated RBC % 4.0 H Seg Neutrophils # Man 14.8 H Monocytes # (Manual) 1.2 H Basophils # (Manual) 0.2 H Fibrinogen Sodium Potassium Chloride 108.5 H Carbon Dioxide 21 L Glucose Calcium 7.9 L Alkaline Phosphatase Lactate Dehydrogenase Total Protein 5.7 L Albumin 2.0 L TSH Urine WBC (Auto) Laboratory Results - last 24 hr 01/28/19 16:50 WBC 19.2 H RBC 3.84 Hgb 9.4 L Hct 31.0 MCV 81 MCH 24 L MCHC 30 RDW 17.5 H Plt Count 313 Add Manual Diff Complete Total Counted 100 Seg Neuts % (Manual) 77.0 H Band Neutrophils % 0 Lymphocytes % (Manual) 15.0 Reactive Lymphs % (Man) 0 Monocytes % (Manual) 6.0 Eosinophils % (Manual) 1.0 Basophils % (Manual) 1.0 Metamyelocytes % 0 Myelocytes % 0 Promyelocytes % 0 Blast Cells % 0 Nucleated RBC % 4.0 H Seg Neutrophils # Man 14.8 H Band Neutrophils # 0.0 Lymphocytes # (Manual) 2.9 Abs React Lymphs (Man) 0.0 Monocytes # (Manual) 1.2 H Eosinophils # (Manual) 0.2 Basophils # (Manual) 0.2 H Metamyelocytes # 0.0 Myelocytes # 0.0 Promyelocytes # 0.0 Blast Cells # 0.0 WBC Morphology Not Reportable Hypersegmented Neuts Not Reportable Hyposegmented Neuts Not Reportable Hypogranular Neuts Not Reportable Smudge Cells Not Reportable Toxic Granulation Not Reportable Toxic Vacuolation Not Reportable Dohle Bodies Not Reportable Pelger-Huet Anomaly Not Reportable Tiara Rods Not Reportable Platelet Estimate Not Reportable Clumped Platelets Not Reportable Plt Clumps, EDTA Not Reportable Large Platelets Not Reportable Giant Platelets Not Reportable Platelet Satelliting Not Reportable Plt Morphology Comment Not Reportable RBC Morphology Not Reportable Dimorphic RBCs Not Reportable Polychromasia Not Reportable Hypochromasia 1+ Poikilocytosis Not Reportable Anisocytosis Not Reportable Microcytosis Not Reportable Macrocytosis Not Reportable Spherocytes Not Reportable Pappenheimer Bodies Not Reportable Sickle Cells Not Reportable Target Cells Not Reportable Tear Drop Cells Not Reportable Ovalocytes Not Reportable Helmet Cells Not Reportable [place] Bodies Not Reportable [place] Rings Not Reportable [place] Cells Not Reportable Bite Cells Not Reportable Crenated Cell Not Reportable Elliptocytes Not Reportable Acanthocytes (Spur) Not Reportable Rouleaux Not Reportable Hemoglobin C Crystals Not Reportable Schistocytes Not Reportable Malaria parasites Not Reportable Turner Bodies Not Reportable Hem Pathologist Commnt No
[2019-01-29 11:17] LABS: Hematocrit 28.2 % (30.3-42.9); Mean Corpuscular HGB Conc 32 % (30-34); Mean Corpuscular Volume 80 fl (79-97); Platelet Count 305 K/mm3 (140-440); Red Blood Count 3.52 M/mm3 (3.65-5.03); Red Cell Distribution Width 17.5 % (13.2-15.2)
[2019-01-29 12:50] LABS: Band Neutrophils # (Manual) 0.4 K/mm3; Basophils % (Manual) 0 % (0.0-1.8); Eosinophils % (Manual) 0 % (0.0-4.3); Total Cells Counted 100
[2019-01-29 12:51] LABS: Hypochromasia 1+; Schistocytes 1+
[2019-01-29 12:53] LABS: Giant Platelets Rare; Platelet Estimate Consistent w Auto; Stomatocytes Rare
[2019-01-29] MEDS: ROCEPHIN/NS 1 GM/50 ML 1 GM/50 ML BAG IV SCH (22:14)
[2019-01-30] MEDS: IBUPROFEN PO SCH ×2 (01:00→03:00)
[2019-01-30] MEDS: GENTAMICIN/NS 100 MG/100 ML 100 MG/100 ML BAG IV SCH (05:27)
[2019-01-30 12:41] VITALS: BP 129/83
[2019-01-30] MEDS: FEOSOL PO SCH (12:57)
[2019-01-30] MEDS ORDERED: DEPO-PROVERA (CONTRACEPTION) IM ONE ×2 (13:53→16:00)
--- NOTE | 2019-01-30 14:29 | Progress Note ---
Subjective - Subjective Date of service: 01/30/19 Principal diagnosis: s/p - PPD #3; Sepsis Interval history: Patient doing well at bedside. ambulatory,afebrile, tolerating PO. Baby up for adoption. I explained that she has had one temp w/in the last 24 hours that was 101.1 and that I would like her to stay till morning but she declines. She lives in [place] with her Mother and indicates she has good social support. PE:Vitals stable: see below. RRR LCTAB Soft, NT, firm fundus ~10 weeks Lochia mild Ext:minimal edema, neg edmond's sign b/l A: , Sepsis P: routine PP care Sepsis resolved,reviewed fever and infection precautions Depo Proverax1 dose prior to d/c FUP in clinic in 2 weeks. Mir Martinez MD Vital Signs (72 hours) 01/27/19 01/27/19 01/27/19 14:30 14:40 14:50 Temperature Pulse Rate 95 H 100 H 101 H Pulse Rate [ Apical] Pulse Rate [ From Monitor] Pulse Rate [ Right Radial] Respiratory 19 19 25 H Rate Blood Pressure 120/75 120/75 120/75 Blood Pressure [Left] Blood Pressure [Right] O2 Sat by Pulse 100 96 100 Oximetry 01/27/19 01/27/19 01/27/19 15:00 15:10 15:20 Temperature Pulse Rate 99 H 83 87 Pulse Rate [ Apical] Pulse Rate [ From Monitor] Pulse Rate [ Right Radial] Respiratory 19 20 20 Rate Blood Pressure 120/75 120/70 120/70 Blood Pressure [Left] Blood Pressure [Right] O2 Sat by Pulse 100 100 99 Oximetry 01/27/19 01/27/19 01/27/19 15:30 15:40 15:50 Temperature Pulse Rate 91 H 91 H 89 Pulse Rate [ Apical] Pulse Rate [ From Monitor] Pulse Rate [ Right Radial] Respiratory 16 21 17 Rate Blood Pressure 120/70 120/70 120/70 Blood Pressure [Left] Blood Pressure [Right] O2 Sat by Pulse 100 99 100 Oximetry 01/27/19 01/27/19 01/27/19 16:00 16:10 16:20 Temperature Pulse Rate 94 H 88 92 H Pulse Rate [ Apical] Pulse Rate [ 109 H From Monitor] Pulse Rate [ Right Radial] Respiratory 24 18 27 H Rate Blood Pressure 120/70 120/70 120/70 Blood Pressure [Left] Blood Pressure [Right] O2 Sat by Pulse 100 99 100 Oximetry 01/27/19 01/27/19 01/27/19 16:30 16:40 16:50 Temperature Pulse Rate 89 88 81 Pulse Rate [ Apical] Pulse Rate [ From Monitor] Pulse Rate [ Right Radial] Respiratory 18 23 14 Rate Blood Pressure 120/70 121/74 121/74 Blood Pressure [Left] Blood Pressure [Right] O2 Sat by Pulse 98 98 100 Oximetry 01/27/19 01/27/19 01/27/19 17:00 17:10 17:20 Temperature Pulse Rate 77 82 77 Pulse Rate [ Apical] Pulse Rate [ From Monitor] Pulse Rate [ Right Radial] Respiratory 18 20 17 Rate Blood Pressure 116/68 116/68 116/68 Blood Pressure [Left] Blood Pressure [Right] O2 Sat by Pulse 99 98 98 Oximetry 01/27/19 01/27/19 01/27/19 17:30 17:40 17:50 Temperature Pulse Rate 78 99 H 94 H Pulse Rate [ Apical] Pulse Rate [ From Monitor] Pulse Rate [ Right Radial] Respiratory 19 22 20 Rate Blood Pressure 116/68 116/68 116/68 Blood Pressure [Left] Blood Pressure [Right] O2 Sat by Pulse 98 94 100 Oximetry 01/27/19 01/27/19 01/27/19 18:00 18:10 18:20 Temperature Pulse Rate 89 88 92 H Pulse Rate [ Apical] Pulse Rate [ From Monitor] Pulse Rate [ Right Radial] Respiratory 18 17 13 Rate Blood Pressure 116/68 116/68 116/68 Blood Pressure [Left] Blood Pressure [Right] O2 Sat by Pulse 100 100 100 Oximetry 01/27/19 01/27/19 01/27/19 18:30 18:40 18:50 Temperature Pulse Rate 96 H 94 H 102 H Pulse Rate [ Apical] Pulse Rate [ From Monitor] Pulse Rate [ Right Radial] Respiratory 19 17 24 Rate Blood Pressure 116/68 116/68 116/68 Blood Pressure [Left] Blood Pressure [Right] O2 Sat by Pulse 100 100 100 Oximetry 01/27/19 01/27/19 01/27/19 19:00 19:10 19:20 Temperature Pulse Rate 101 H 97 H 91 H Pulse Rate [ Apical] Pulse Rate [ From Monitor] Pulse Rate [ Right Radial] Respiratory 22 17 19 Rate Blood Pressure 116/68 116/68 116/68 Blood Pressure [Left] Blood Pressure [Right] O2 Sat by Pulse 100 100 100 Oximetry 01/27/19 01/27/19 01/27/19 19:30 19:40 19:50 Temperature Pulse Rate 97 H 88 97 H Pulse Rate [ Apical] Pulse Rate [ From Monitor] Pulse Rate [ Right Radial] Respiratory 15 22 20 Rate Blood Pressure 116/68 116/68 116/68 Blood Pressure [Left] Blood Pressure [Right] O2 Sat by Pulse 100 100 100 Oximetry 01/27/19 01/27/19 01/27/19 20:00 20:10 22:35 Temperature Pulse Rate 87 Pulse Rate [ 82 Apical] Pulse Rate [ 82 From Monitor] Pulse Rate [ Right Radial] Respiratory 21 18 Rate Blood Pressure 116/68 116/68 Blood Pressure [Left] Blood Pressure [Right] O2 Sat by Pulse 100 100 98 Oximetry 01/27/19 01/28/19 01/28/19 23:14 00:13 04:33 Temperature 98.2 F 98.2 F Pulse Rate 93 H 85 104 H Pulse Rate [ Apical] Pulse Rate [ From Monitor] Pulse Rate [ Right Radial] Respiratory 18 18 Rate Blood Pressure 123/74 126/78 Blood Pressure [Left] Blood Pressure [Right] O2 Sat by Pulse 100 100 Oximetry 01/28/19 01/28/19 01/28/19 06:08 08:27 10:00 Temperature 97.7 F Pulse Rate 98 H 109 H Pulse Rate [ 98 H Apical] Pulse Rate [ 108 H From Monitor] Pulse Rate [ 98 H Right Radial] Respiratory 18 14 14 Rate Blood Pressure 114/64 Blood Pressure [Left] Blood Pressure [Right] O2 Sat by Pulse 96 98 Oximetry 01/28/19 01/28/19 01/28/19 11:45 16:40 20:55 Temperature 97.3 F L 98.3 F 98.1 F Pulse Rate 81 90 98 H Pulse Rate [ Apical] Pulse Rate [ From Monitor] Pulse Rate [ Right Radial] Respiratory 18 18 18 Rate Blood Pressure 143/83 Blood Pressure 115/78 [Left] Blood Pressure 116/67 [Right] O2 Sat by Pulse 99 100 Oximetry 01/29/19 01/29/19 01/29/19 01:28 06:10 07:30 Temperature 99.0 F 97.2 F L 97.3 F L Pulse Rate 100 H 82 78 Pulse Rate [ Apical] Pulse Rate [ From Monitor] Pulse Rate [ Right Radial] Respiratory 20 18 20 Rate Blood Pressure 119/62 112/64 107/56 Blood Pressure [Left] Blood Pressure [Right] O2 Sat by Pulse 96 97 95 Oximetry 01/29/19 01/29/19 01/29/19 13:42 16:12 19:00 Temperature 97.6 F 97.4 F L Pulse Rate 85 79 Pulse Rate [ Apical] Pulse Rate [ From Monitor] Pulse Rate [ Right Radial] Respiratory 16 20 18 Rate Blood Pressure 121/81 118/79 Blood Pressure [Left] Blood Pressure [Right] O2 Sat by Pulse 100 100 Oximetry 01/29/19 01/29/19 01/30/19 21:00 21:22 00:34 Temperature 97.6 F 97.7 F Pulse Rate 71 90 Pulse Rate [ Apical] Pulse Rate [ From Monitor] Pulse Rate [ Right Radial] Respiratory 18 18 18 Rate Blood Pressure 122/80 108/64 Blood Pressure [Left] Blood Pressure [Right] O2 Sat by Pulse 96 98 Oximetry 01/30/19 01/30/19 01/30/19 01:00 03:00 05:17 Temperature 101.1 F H Pulse Rate 101 H Pulse Rate [ Apical] Pulse Rate [ From Monitor] Pulse Rate [ Right Radial] Respiratory 18 18 20 Rate Blood Pressure 127/67 Blood Pressure [Left] Blood Pressure [Right] O2 Sat by Pulse 98 Oximetry 01/30/19 01/30/19 01/30/19 05:27 06:27 06:29 Temperature 98.4 F Pulse Rate Pulse Rate [ Apical] Pulse Rate [ From Monitor] Pulse Rate [ Right Radial] Respiratory 18 18 18 Rate Blood Pressure Blood Pressure [Left] Blood Pressure [Right] O2 Sat by Pulse Oximetry 01/30/19 01/30/19 08:39 12:14 Temperature 97.5 F L 97.7 F Pulse Rate 81 54 L Pulse Rate [ Apical] Pulse Rate [ From Monitor] Pulse Rate [ Right Radial] Respiratory 18 18 Rate Blood Pressure 123/71 129/83 Blood Pressure [Left] Blood Pressure [Right] O2 Sat by Pulse 93 96 Oximetry Objective - Vital Signs Vital Signs: Vital Signs - 12hr 01/30/19 01/30/19 01/30/19 03:00 05:17 05:27 Temperature 101.1 F H Pulse Rate 101 H Respiratory 18 20 18 Rate Blood Pressure 127/67 O2 Sat by Pulse 98 Oximetry 01/30/19 01/30/19 01/30/19 06:27 06:29 08:39 Temperature 98.4 F 97.5 F L Pulse Rate 81 Respiratory 18 18 18 Rate Blood Pressure 123/71 O2 Sat by Pulse 93 Oximetry 01/30/19 12:14 Temperature 97.7 F Pulse Rate 54 L Respiratory 18 Rate Blood Pressure 129/83 O2 Sat by Pulse 96 Oximetry - Labs Labs: Abnormal Labs 01/24/19 01/24/19 01/24/19 03:09 21:42 21:42 WBC 32.3 H RBC 3.17 L Hgb 8.3 L Hct 25.4 L MCH 26 L RDW 16.7 H Seg Neuts % (Manual) Lymphocytes % (Manual) Nucleated RBC % Seg Neutrophils # Man Monocytes # (Manual) Basophils # (Manual) Fibrinogen 706 H Sodium 131 L Potassium 3.0 L Chloride Carbon Dioxide 20 L Glucose 158 H Calcium 8.0 L Alkaline Phosphatase 133 H Lactate Dehydrogenase 195 H Total Protein 6.2 L Albumin 2.1 L TSH Urine WBC (Auto) 01/25/19 01/25/19 01/25/19 06:46 11:42 14:49 WBC RBC Hgb 9.5 L Hct 29.7 L MCH RDW Seg Neuts % (Manual) Lymphocytes % (Manual) Nucleated RBC % Seg Neutrophils # Man Monocytes # (Manual) Basophils # (Manual) Fibrinogen Sodium Potassium Chloride Carbon Dioxide Glucose Calcium Alkaline Phosphatase Lactate Dehydrogenase Total Protein Albumin TSH 4.320 H Urine WBC (Auto) > 182.0 H 01/25/19 01/27/19 01/27/19 14:49 07:59 15:57 WBC 34.3 H 23.7 H RBC Hgb 9.2 L Hct 29.5 L MCH 26 L 25 L RDW 17.3 H 17.2 H Seg Neuts % (Manual) 73.5 H 90.0 H Lymphocytes % (Manual) 6.5 L 8.0 L Nucleated RBC % Seg Neutrophils # Man 25.2 H 21.3 H Monocytes # (Manual) 1.5 H Basophils # (Manual) Fibrinogen Sodium Potassium 3.4 L Chloride 109.1 H Carbon Dioxide 21 L Glucose Calcium 7.6 L Alkaline Phosphatase Lactate Dehydrogenase Total Protein Albumin TSH Urine WBC (Auto) 01/27/19 01/28/1901/29/19 15:57 16:50 10:44 WBC 19.2 H 12.3 H RBC 3.52 L Hgb 9.4 L 9.0 L Hct 28.2 L MCH 24 L 26 L RDW 17.5 H 17.5 H Seg Neuts % (Manual) 77.0 H 71.0 H Lymphocytes % (Manual) Nucleated RBC % 4.0 H Seg Neutrophils # Man 14.8 H 8.7 H Monocytes # (Manual) 1.2 H Basophils # (Manual) 0.2 H Fibrinogen Sodium Potassium Chloride 108.5 H Carbon Dioxide 21 L Glucose Calcium 7.9 L Alkaline Phosphatase Lactate Dehydrogenase Total Protein 5.7 L Albumin 2.0 L TSH Urine WBC (Auto)
--- NOTE | 2019-01-30 14:34 | Discharge Summary ---
Providers - Providers Date of Admission: 01/24/19 17:47 Date of discharge: 01/30/19 Attending physician: Christina Abraham MD 01/25/19 11:19 Consult to Physician [CONS] Stat Comment: Consulting Provider: ANÍBAL LOERA Physician Instructions: Reason For Exam: unable to get temp., cough 01/25/19 11:33 Consult to Case Management [CONS] Routine Services Needed at Discharge: Fur Glazer Notified:: CASE MANAGEMENT Additional Physician Instructions: Late care and only made one visit. 01/25/19 13:56 Consult to Physician [CONS] Stat Comment: Consulting Provider: ANÍBAL LOERA Physician Instructions: Reason For Exam: Pyelonephritis; sepsis 01/26/19 14:16 Consult to Case Management [CONS] Stat Services Needed at Discharge: Fur Glazer Notified:: Sharon Comment:: Will notify Primary care physician: LEGAL SERVICE SPECIALIST Hospitalization Reason for admission: , Sepsis Condition: Stable Disposition: [id number] TO HOME OR SELFCARE - Discharge Diagnoses (1) (normal spontaneous vaginal delivery) Status: Acute Core Measure Documentation - Palliative Care Palliative Care/ Comfort Measures: Not Applicable - Core Measures Any of the following diagnoses?: none Exam - Constitutional Vitals: Temp Pulse Resp BP Pulse Ox 97.7 F 54 L 18 129/83 96 01/30/19 12:14 01/30/19 12:14 01/30/19 12:14 01/30/19 12:14 01/30/19 12:14 Plan Activity: no restrictions, other (nothing per vaginax6 weeks. ) Follow up with: CHRISTINA ABRAHAM MD [Staff Physician] - 14 Days PRIMARY CARE, [Primary Care Provider] - 7 Days Forms: [facility] Discharge Summary, Discharge Signature Page Prescriptions: Ibuprofen [Motrin 600 MG tab] 600 mg PO Q6H #60 tablet
[2019-01-30] MEDS ORDERED: FEOSOL PO SCH ×2 (22:00)
[2019-01-31] MEDS ORDERED: PRENATAL VITAMIN PO SCH (10:00)
== END 2019-01-30 16:01 | disposition home or self-care (01) | DRG 774 ==
LOC: LD 17:47 → OB 20:17 → IMCU 01-25 15:15 → 4A 01-27 20:24 → OB 01-28 11:37
PROVIDERS: ADMIT Obstetrics & Gynecology; ATTEND Obstetrics & Gynecology
PROC: 10E0XZZ Delivery of Products of Conception, External Approach (ICD-10-PCS; principal; 2019-01-24)
DX: O85 Puerperal sepsis (principal); Z3A.38 38 weeks gestation of pregnancy; D64.9 Anemia, unspecified; O98.83 Other maternal infectious and parasitic diseases complicating the puerperium; Z37.0 Single live birth; O90.81 Anemia of the puerperium; O99.215 Obesity complicating the puerperium; E66.9 Obesity, unspecified; O99.43 Diseases of the circulatory system complicating the puerperium; R00.0 Tachycardia, unspecified; O99.285 Endocrine, nutritional and metabolic diseases complicating the puerperium; O25.3 Malnutrition in the puerperium; T68.XXXA Hypothermia, initial encounter; E87.6 Hypokalemia
CPT/HCPCS: 36415; 71045; 74177; 80048; 80053; 80170; 80307; 81001; 82140; 83036; 83615; 84439; 84443; 84550; 85007; 85014; 85018; 85025; 85027; 85384; 86592; 86850; 86900; 86901; 87040; 87086; 87806; 88307; 93005; 93010; G0378; J0290; J0696; J1050; J1580; J2590; J3411; J3480; J7030; J7120; Q9967

== ENCOUNTER 2020-07-21 03:40 | Emergency (ER) | payer OTHER ==
[2020-07-21] MEDS ORDERED: ACETAMINOPHEN 500 MG TAB PO ONE (04:15)
[2020-07-21] MEDS ORDERED: IBUPROFEN 600 MG TAB PO ONE (04:15)
[2020-07-21 05:38] LABS: Bacteria,Urine 1+ /HPF (Negative); Bilirubin,Urine NEG (Negative); Blood,Urine LG (Negative); Color,Urine Amber (Yellow); Mucus,Urine 3+ /HPF
[2020-07-21 05:39] LABS: HCG Qualitative,Urine Negative (Negative)
[2020-07-21] MEDS ORDERED: cephALEXin 500 MG CAP PO ONE (05:46)
[2020-07-21 05:52] LABS: RBC,Urine > 182.0 /HPF (0.0-6.0); WBC,Urine > 182.0 /HPF (0.0-6.0)
--- NOTE | 2020-07-21 06:03 | Emergency Department Report ---
ED Female HPI - General Chief complaint: Urogenital-Female Stated complaint: PELVIC PAIN Source: patient Mode of arrival: Ambulatory Limitations: No Limitations - History of Present Illness Initial comments: Patient is a 25-year-old -Japanese female with no past medical history presents to the ED with complaint of acute onset persistent severe suprapubic menstrual cramps for the last 1 week. Patient states that her suprapubic pain began a week ago before she started having her cycle. Patient states that the last 3 days suprapubic pain got worse having started the cycle. Patient states that although she usually experiences dysmenorrhea, this current pains have worsened and cannot be compared with her regular monthly dysmenorrhea. Patient denies fever, chills, nausea, vomiting, dizziness, syncope, fever, chills, cough, low back pain, vaginal discharge, diarrhea or traumatic injury. MD Complaint: vaginal bleeding, pelvic pain, other (Urinary frequency and urgency) -: Sudden, week(s) (1) Location: suprapubic Radiation: non-radiating Severity: severe Severity scale (0 -10): 8 Quality: cramping, sharp Consistency: constant Improves with: none Worsens with: urination Are you Now?: No Associated Symptoms: denies other symptoms, vaginal bleeding (Currently on her menstrual cycle), abdominal pain (Suprapubic pain and cramps). denies: vaginal discharge, headaches, loss of appetite, dysuria, hematuria, rash, seizure, shortness of breath, syncope, weakness - Related Data Sexually active: Yes : 2 Para: 2 Home Medications Medication Instructions Recorded Confirmed Last Taken Ferrous Sulfate [Iron] 325 mg PO BID 08/24/17 01/24/19 Unknown Vit-Fe Fumar-FA [ 1 tab PO QDAY 08/24/17 01/24/19 Unknown Vitamin] Previous Rx's Medication Instructions Recorded Last Taken Type Ferrous Sulfate [Feosol 325 MG tab] 325 mg PO BID #60 tablet 08/27/17 Unknown Rx Ibuprofen [Motrin 600 MG tab] 600 mg PO Q6H #60 tablet 01/30/19 Unknown Rx Fluconazole (Nf) [Diflucan TAB] 150 mg PO ONCE #1 tablet 07/21/20 Unknown Rx Ibuprofen [Motrin] 800 mg PO Q8HR PRN #30 tablet 07/21/20 Unknown Rx Ondansetron [Zofran Odt] 4 mg PO Q6HR PRN #15 tab.rapdis 07/21/20 Unknown Rx cephALEXin [Keflex] 500 mg PO Q8HR #30 cap 07/21/20 Unknown Rx traMADoL [Ultram] 50 mg PO Q6HR PRN #10 tablet 07/21/20 Unknown Rx Allergies Allergy/AdvReac Type Severity Reaction Status Date / Time No Known Allergies Allergy Verified 08/24/17 01:14 ED Review of Systems ROS: Stated complaint: PELVIC PAIN Other details as noted in HPI Constitutional: denies: chills, fever Eyes: denies: eye pain, eye discharge, vision change ENT: denies: ear pain, throat pain Respiratory: denies: cough, shortness of breath, wheezing Cardiovascular: denies: chest pain, palpitations Endocrine: no symptoms reported Gastrointestinal: abdominal pain (Suprapubic cramps). denies: nausea, vomiting, diarrhea, melena Genitourinary: urgency, frequency, abnormal menses (Currently on her menstrual cycle). denies: dysuria, discharge Musculoskeletal: denies: back pain, joint swelling, arthralgia Skin: denies: rash, lesions Neurological: denies: headache, weakness, paresthesias Psychiatric: denies: anxiety, depression Hematological/Lymphatic: denies: easy bleeding, easy bruising ED Past Medical Hx - Past Medical History Previous Medical History?: No Hx Hypertension: No Hx Congestive Heart Failure: No Hx Diabetes: No Hx Deep Vein Thrombosis: No Hx Renal Disease: No Hx Sickle Cell Disease: No Hx Seizures: No Hx Asthma: No Hx COPD: No Hx HIV: No - Surgical History Past Surgical History?: No - Social History Smoking Status: Never Smoker Substance Use Type: Marijuana - Medications Home Medications: Home Medications Medication Instructions Recorded Confirmed Last Taken Type Ferrous Sulfate [Iron] 325 mg PO BID 08/24/17 01/24/19 Unknown History Vit-Fe Fumar-FA [ 1 tab PO QDAY 08/24/17 01/24/19 Unknown History Vitamin] Ferrous Sulfate [Feosol 325 MG tab] 325 mg PO BID #60 tablet 08/27/17 01/24/19 Unknown Rx Ibuprofen [Motrin 600 MG tab] 600 mg PO Q6H #60 tablet 01/30/19 Unknown Rx Fluconazole (Nf) [Diflucan TAB] 150 mg PO ONCE #1 tablet 07/21/20 Unknown Rx Ibuprofen [Motrin] 800 mg PO Q8HR PRN #30 tablet 07/21/20 Unknown Rx Ondansetron [Zofran Odt] 4 mg PO Q6HR PRN #15 tab.rapdis 07/21/20 Unknown Rx cephALEXin [Keflex] 500 mg PO Q8HR #30 cap 07/21/20 Unknown Rx traMADoL [Ultram] 50 mg PO Q6HR PRN #10 tablet 07/21/20 Unknown Rx ED Physical Exam - General Limitations: No Limitations General appearance: alert, in no apparent distress - Head Head exam: Present: atraumatic, normocephalic, normal inspection - Eye Eye exam: Present: normal appearance, PERRL, EOMI Pupils: Present: normal accommodation - ENT ENT exam: Present: normal exam, normal orophraynx, mucous membranes moist, TM's normal bilaterally, normal external ear exam - Neck Neck exam: Present: normal inspection, full ROM - Respiratory Respiratory exam: Present: normal lung sounds bilaterally. Absent: respiratory distress, wheezes, rales, rhonchi, chest wall tenderness, decreased breath sounds, prolonged expiratory - Cardiovascular Cardiovascular Exam: Present: regular rate, normal rhythm, normal heart sounds. Absent: systolic murmur, diastolic murmur, rubs, gallop - GI/Abdominal GI/Abdominal exam: Present: soft, normal bowel sounds. Absent: tenderness, guarding, rebound, hyperactive bowel sounds, hypoactive bowel sounds, organome pita - Bi-manual exam: Present: other (Pelvic exam deferred at this time) - Extremities Exam Extremities exam: Present: normal inspection, full ROM, normal capillary refill - Back Exam Back exam: Present: normal inspection, full ROM. Absent: tenderness, CVA tenderness (R), CVA tenderness (L), muscle spasm, paraspinal tenderness, vertebral tenderness - Neurological Exam Neurological exam: Present: alert, oriented X3, CN II-XII intact, normal gait, reflexes normal - Psychiatric Psychiatric exam: Present: normal affect, normal mood - Skin Skin exam: Present: warm, dry, intact, normal color. Absent: rash ED Medical Decision Making - Medical Decision Making This is a 25-year-old -Japanese female with no past medical history presents to the ED with complaint of acute onset persistent severe suprapubic menstrual cramps for the last 1 week. Patient states that her suprapubic pain began a week ago before she started having her cycle. Patient states that the last 3 days suprapubic pain got worse having started the cycle. Patient states that although she usually experiences dysmenorrhea, this current pains have worsened and cannot be compared with her regular monthly dysmenorrhea. In the ED, patient is alert and oriented x3 and is not in distress. Urinalysis showed significant urinary tract infection. Patient was treated in the ED for pain also given initial oral antibiotics in the ED. Patient was thereafter discharged home on pain medications and oral antibiotics advised to follow-up with her primary care physician or [facility] physician in 7 to 10 days for reevaluation or return to the ED immediately if symptoms get worse. - Differential Diagnosis UTI; ; ovarian cyst; uterine fibroids; STD; kidney stones Critical care attestation.: If time is entered above; I have spent that time in minutes in the direct care of this critically ill patient, excluding procedure time. ED Disposition Clinical Impression: Acute urinary tract infection, Severe dysmenorrhea, Candidal vaginitis Disposition: DC- TO HOME OR SELFCARE Is pt being admited?: No Does the pt Need Aspirin: No Condition: Stable Instructions: Antibiotic Medicine, Adult, [id number], Urinary Tract Infection, Adult, [id number], Dysmenorrhea, [id number], Vaginal Yeast Infection, Adult Additional Instructions: All lab test results were reviewed and showed significant urinary tract infection. The infection is currently complicating irregular dysmenorrhea making the pain worse. Therefore take medications as needed with food, drink plenty of fluids and follow-up with your [facility] physician or primary care physician in 7 to 10 days for reevaluation. Return to the ED immediately if symptoms get worse. Prescriptions: Fluconazole (Nf) [Diflucan TAB] 150 mg PO ONCE #1 tablet cephALEXin [Keflex] 500 mg PO Q8HR #30 cap Ibuprofen [Motrin] 800 mg PO Q8HR PRN #30 tablet PRN Reason: Pain , Severe (7-10) traMADoL [Ultram] 50 mg PO Q6HR PRN #10 tablet PRN Reason: Pain Ondansetron [Zofran Odt] 4 mg PO Q6HR PRN #15 tab.rapdis PRN Reason: Nausea Referrals: [facility] [Provider Group] - 7-10 days Time of Disposition: 06:07 Print Language: NEPALESE
[2020-07-21 06:22] VITALS: BP 107/69
== END 2020-07-21 06:18 | disposition home or self-care (01) ==
LOC: ED 03:40
DX: N39.0 Urinary tract infection, site not specified (principal); B37.3 Candidiasis of vulva and vagina; N94.6 Dysmenorrhea, unspecified; F12.10 Cannabis abuse, uncomplicated; Z79.1 Long term (current) use of non-steroidal anti-inflammatories (NSAID); Z79.899 Other long term (current) drug therapy
CPT/HCPCS: 81001; 81025

== ENCOUNTER 2021-06-09 12:16 | Emergency (ER) | payer OTHER ==
--- NOTE | 2021-06-09 12:25 | Emergency Department Report ---
ED General Adult HPI - General Stated complaint: ELEVATED HEART RATE Time Seen by Provider: 06/09/21 12:24 - History of Present Illness Initial comments: Patient presents by ambulance secondary to tachycardia. She was smoking marijuana. She started to feel unusual. She got up and went outside and started to panic and feel anxiety. EMS was called and the patient was transported here. Patient states that she feels better. Paramedics have administered 1 L of fluids. She states that this is not marijuana that she grew or that she obtained from a close contact. It was obtained from a friend of a friend. She does not know if it was laced with something. Currently, she has no complaints. - Related Data Home Medications Medication Instructions Recorded Confirmed Last Taken Ferrous Sulfate [Iron] 325 mg PO BID 08/24/17 01/24/19 Unknown Vit-Fe Fumar-FA [ 1 tab PO QDAY 08/24/17 01/24/19 Unknown Vitamin] Previous Rx's Medication Instructions Recorded Last Taken Type Ferrous Sulfate [Feosol 325 MG tab] 325 mg PO BID #60 tablet 08/27/17 Unknown Rx Ibuprofen [Motrin 600 MG tab] 600 mg PO Q6H #60 tablet 01/30/19 Unknown Rx Fluconazole (Nf) [Diflucan TAB] 150 mg PO ONCE #1 tablet 07/21/20 Unknown Rx Ibuprofen [Motrin] 800 mg PO Q8HR PRN #30 tablet 07/21/20 Unknown Rx Ondansetron [Zofran Odt] 4 mg PO Q6HR PRN #15 tab.rapdis 07/21/20 Unknown Rx cephALEXin [Keflex] 500 mg PO Q8HR #30 cap 07/21/20 Unknown Rx traMADoL [Ultram] 50 mg PO Q6HR PRN #10 tablet 07/21/20 Unknown Rx Allergies Allergy/AdvReac Type Severity Reaction Status Date / Time No Known Allergies Allergy Verified 08/24/17 01:14 ED Review of Systems ROS: Stated complaint: ELEVATED HEART RATE Other details as noted in HPI Comment: All other systems reviewed and negative Constitutional: denies: fever Eyes: denies: eye pain ENT: denies: throat pain Respiratory: denies: cough Cardiovascular: denies: chest pain Endocrine: denies: unexplained weight loss Gastrointestinal: denies: abdominal pain Genitourinary: denies: dysuria Musculoskeletal: denies: back pain Skin: denies: rash Neurological: denies: headache Psychiatric: as per HPI, anxiety Hematological/Lymphatic: denies: swollen glands ED Past Medical Hx - Past Medical History Hx Hypertension: No Hx Congestive Heart Failure: No Hx Diabetes: No Hx Deep Vein Thrombosis: No Hx Renal Disease: No Hx Sickle Cell Disease: No Hx Seizures: No Hx Asthma: No Hx COPD: No Hx HIV: No - Family History Family history: no significant - Social History Smoking Status: Never Smoker Substance Use Type: Marijuana - Medications Home Medications: Home Medications Medication Instructions Recorded Confirmed Last Taken Type Ferrous Sulfate [Iron] 325 mg PO BID 08/24/17 01/24/19 Unknown History Vit-Fe Fumar-FA [ 1 tab PO QDAY 08/24/17 01/24/19 Unknown History Vitamin] Ferrous Sulfate [Feosol 325 MG tab] 325 mg PO BID #60 tablet 08/27/17 01/24/19 Unknown Rx Ibuprofen [Motrin 600 MG tab] 600 mg PO Q6H #60 tablet 01/30/19 Unknown Rx Fluconazole (Nf) [Diflucan TAB] 150 mg PO ONCE #1 tablet 07/21/20 Unknown Rx Ibuprofen [Motrin] 800 mg PO Q8HR PRN #30 tablet 07/21/20 Unknown Rx Ondansetron [Zofran Odt] 4 mg PO Q6HR PRN #15 tab.rapdis 07/21/20 Unknown Rx cephALEXin [Keflex] 500 mg PO Q8HR #30 cap 07/21/20 Unknown Rx traMADoL [Ultram] 50 mg PO Q6HR PRN #10 tablet 07/21/20 Unknown Rx ED Physical Exam - General Limitations: No Limitations, Other (Pulse ox noted and normal) General appearance: alert, in no apparent distress - Head Head exam: Present: atraumatic, normocephalic - Eye Eye exam: Present: normal appearance, EOMI - ENT ENT exam: Present: normal external ear exam - Neck Neck exam: Present: normal inspection. Absent: meningismus - Respiratory Respiratory exam: Present: normal lung sounds bilaterally. Absent: respiratory distress - Cardiovascular Cardiovascular Exam: Present: normal rhythm, tachycardia - GI/Abdominal GI/Abdominal exam: Present: soft. Absent: distended - Extremities Exam Extremities exam: Present: normal capillary refill - Back Exam Back exam: Present: full ROM - Neurological Exam Neurological exam: Present: alert, oriented X3, normal gait. Absent: motor sensory deficit - Psychiatric Psychiatric exam: Present: normal affect, normal mood - Skin Skin exam: Present: warm, dry ED Course Vital Signs 06/09/21 12:20 Pulse Rate 104 H Respiratory 18 Rate Blood Pressure 130/80 [Left] O2 Sat by Pulse 98 Oximetry - Reevaluation(s) Reevaluation #1: 06/09/21 12:56 EMS have been met and the patient was discharged ED Medical Decision Making - Medical Decision Making Patient presents with anxiety after smoking marijuana. She has no evidence of persistent tachycardia that is concerning. Heart rate is 104. She is improved from the one 30-1 50 range per EMS. Patient has a regular rhythm based on my exam. There is no history of significant caffeine use. She does not have hypertension. She is not agitated. She has not anxious at this time. Patient was not suicidal homicidal. There was no hallucination. She was discharged. Critical Care Time: No Critical care attestation.: If time is entered above; I have spent that time in minutes in the direct care of this critically ill patient, excluding procedure time. ED Disposition Clinical Impression: Marijuana use, Tachycardia Disposition: HOME / SELF CARE / HOMELESS Is pt being admited?: No Condition: Stable Instructions: Cannabis Use Disorder, Sinus Tachycardia, What You Need to Know About Marijuana Use Additional Instructions: Stop using street drugs. Drink plenty of water. Return for problems. Do not drink caffeine for the next 48 hours. Follow-up with your regular doctor for recheck. Follow-up with the referral doctor if you do not have a regular doctor. Referrals: PRIMARY [facility] [Referring] - 3-5 Days BECCA JARRELL MD [Staff Physician] - 3-5 Days
[2021-06-09 12:30] VITALS: BP 130/80
== END 2021-06-09 12:32 | disposition home or self-care (01) ==
LOC: ED 12:16
DX: R00.0 Tachycardia, unspecified (principal); F17.200 Nicotine dependence, unspecified, uncomplicated
CPT/HCPCS: 99283